=== PATIENT | female | born 1955 | race Caucasian/White ===

== ENCOUNTER 2018-08-30 11:30 | Inpatient (IN) ==
[2018-08-30] MEDS ORDERED: NS IV ONE ×3 (11:43)
[2018-08-30] MEDS ORDERED: NS 1,000 ML ONE ×2 (11:49→14:03)
[2018-08-30] MEDS ORDERED: NS 2,000 ML ONE (11:56)
[2018-08-30 12:16] LABS: BASO# 0.02 X1000 (0.0-0.2); BASO% 0.5 % (0.0-0.8); EOS# 0.04 X1000 (0.0-0.7); EOS% 1.1 % (0.0-10.0); HEMATOCRIT 40.6 % (37.0-47.0); HEMOGLOBIN 13.5 g/dL (12.0-16.0); IMM GRAN# 0.27 X1000 (0.0-0.04); IMM GRAN% 7.3 % (0.0-0.5); LYMPH# 0.17 X1000 (1.2-3.4); LYMPH% 4.6 % (20.5-51.1); MCH 29.1 PG (27-31); MCHC 33.3 g/dL (33-37); MCV 87.5 FL (81-99); MONO# 0.08 X1000 (0.11-0.59); MONO% 2.2 % (1.7-9.3); NEUT# 3.12 X1000 (1.4-6.5); NEUT% 84.3 % (42.2-75.2); PLT 169 X1000 (130-400); RBC 4.64 XMIL (4.2-5.4); RDW 13.6 % (11.5-14.5)
[2018-08-30] MEDS ORDERED: TYLENOL PO ONE (12:26)
[2018-08-30] MEDS ORDERED: TYLENOL PR ONE (12:26)
[2018-08-30 12:29] LABS: INR 1.35; PROTIME 17.4 Seconds (11.0-16.0)
[2018-08-30 12:32] LABS: ALBUMIN 2.6 g/dL (3.5-5.0); CALCIUM 8.1 mg/dL (8.8-10.2); CREATININE 1.3 mg/dL (0.5-0.9); POTASSIUM 2.8 mmol/L (3.5-5.1); TOTAL BILIRUBIN 0.9 mg/dL (0.20-1.00); TOTAL PROTEIN 5.9 g/dL (6.3-8.3)
[2018-08-30 13:04] LABS: BILIRUBIN URINE NEGATIVE (NEGATIVE); BLOOD URINE 3+ (NEGATIVE); CLARITY SL. CLOUDY (CLEAR); COLOR YELLOW; GLUCOSE URINE NEGATIVE (NEGATIVE); KETONE URINE NEGATIVE (NEGATIVE); LEUKOCYTES URINE 2+ (NEGATIVE); NITRITE URINE POSITIVE (NEGATIVE); PROTEIN URINE TRACE mg/dL (NEGATIVE); SP GRAVITY URINE 1.005; UROBILINOGEN URINE NORMAL
[2018-08-30 13:11] LABS: URINE BACTERIA 3+ /HFP
[2018-08-30 13:12] LABS: URINE SOURCE CATH
--- NOTE | 2018-08-30 13:28 | Diag Imaging Result Doc PS360 ---
EXAM: CHEST-PORTABLE HISTORY: fever TECHNIQUE: Chest single view COMPARISON: 04/20/2018 FINDINGS: The lungs are well expanded. The heart is not enlarged. The vessels are not distended. There is no consolidation. No effusion identified. IMPRESSION: No definite pneumonia. Electronically signed by Salvador Morley 08/30/2018 1:25 PM
--- NOTE | 2018-08-30 13:34 | Diag Imaging Result Doc PS360 ---
EXAM: CT ABD/PELVIS W/IV CONT ONLY HISTORY: fever post op TECHNIQUE: CT abdomen and pelvis with intravenous contrast COMPARISON: 04/12/2017 FINDINGS: The vasculature in the lower lungs is distended. No consolidation. The gallbladder has been removed. There has been a gastric bypass procedure. The spleen measures 14.1 cm in AP diameter. No focal hepatic abnormality. Normal pancreas and adrenal glands. Normal right kidney. There is a 5 x 6 x 13 mm stone in the upper left ureter just beneath the ureteropelvic junction. There is an additional 5 mm nonobstructing left renal stone. No right-sided hydronephrosis. Normal aorta. The appendix has been removed. No bowel obstruction. No ascites. Nonspecific minimal inflammation in the mid mesentery. The urinary bladder contains a Bee catheter. The uterus has been removed. No pelvic mass. IMPRESSION: 1.Large stone in the upper left ureter. There is also nonobstructing left renal stone. 2.Gastric bypass and cholecystectomy 3.Mild splenomegaly 4.Appendectomy 5.Hysterectomy This exam was performed using automated exposure control, adjustment of mA or kV according to patient size, and/or use of iterative reconstruction technique. Electronically signed by Salvador Morley 08/30/2018 1:31 PM
[2018-08-30] MEDS ORDERED: AZACTAM 2 GM in NS 100 ML IV ONE (13:39)
[2018-08-30] MEDS ORDERED: LEVAQUIN 750 MG/D5W 750 MG/150 ML IVPB IV ONE (13:50)
[2018-08-30] MEDS ORDERED: POTASSIUM CHLORIDE 40 MEQ/SWI 40 MEQ/100 ML IVPB IV ONE (14:09)
[2018-08-30] MEDS: LEVOPHED 8 MG in D5 1/2 NS 250 ML IV SCH ×3 (14:12→16:25)
[2018-08-30] MEDS ORDERED: LEVOPHED 8 MG in D5 1/2 NS 250 ML IV SCH ×2 (14:15→15:00)
--- NOTE | 2018-08-30 14:42 | PROVIDER DOCUMENTATION ---
This chart was entered by Caterina Gamble Scribe, acting as scribe for Mark Shen MD. HPI-General Adult - General Chief Complaint: Weakness Stated Complaint: post op complaint Time Seen by Provider: 08/30/18 11:36 Source: patient Allergies/Adverse Reactions: Patient Allergies Allergy/AdvReac Type Severity Reaction Status Date / Time nitrofurantoin Allergy RASH Verified 08/30/18 11:40 [From Macrobid] nitrofurantoin Allergy RASH Verified 08/30/18 11:40 macrocrystalline * [From Macrobid] Penicillins Allergy ANAPHYLAXIS Verified 08/30/18 11:40 Home Medications: Home Medication List Medication Instructions Recorded Confirmed Last Taken Type Fenofibrate 160 mg PO QHS 08/11/12 01/27/16 01/26/16 21:30 History 160 Insulin Glargine [Lantus] 100 unit SUBQ BID 08/11/12 01/27/16 01/27/16 10:00 History 100 Metformin [Glucophage] 500 mg PO WSUPPER 08/11/12 01/27/16 01/26/16 21:30 History 500 Ciprofloxacin HCl [Cipro] 500 mg PO BID #20 tablet 01/20/16 01/27/16 01/26/16 10:00 Rx 500 Glipizide 10 mg PO BID 01/20/16 01/27/16 01/26/16 21:00 History 10 Insulin Lispro [Humalog] 18 - 24 units SUBQ TID 01/20/16 01/27/16 01/22/16 12:00 History Ondansetron Odt [Zofran 8Mg Odt] 8 mg PO Q8H PRN PRN #10 tablet 01/20/16 01/27/16 01/22/16 Rx 8 Oxycodone/APAP 10 mg/325 mg 1 each PO Q8H PRN PRN #15 tablet 01/20/16 01/27/16 01/27/16 12:00 Rx [Percocet-10] 1 Tamsulosin [Flomax] 0.4 mg PO HS #30 capsule 01/20/16 01/27/16 01/22/16 22:00 Rx Ciprofloxacin HCl [Cipro] 500 mg PO BID #10 tablet 01/27/16 Unknown Rx Oxycodone HCl/Acetaminophen 1 each PO Q6H PRN PRN #25 tablet 01/27/16 Unknown Rx [Percocet 10-325 mg Tablet] - History of Present Illness -Gen Adult Nature of Presenting Problems: 63yof presents to ED cc severe weakness, feeling like she is 'drunk' but has had no alcohol and vomiting bile since this morning. Pt reports she had umbilical hernia surgery and liver biopsy 3 days ago. Pt also reports she had lap band surgery in June and gallbladder surgery prior to that. Pt has hx of DM. Blood pressure is 86/47 upon exam. Location of Pain/Injury: reports: generalized Pain Radiation: reports: no radiation Quality of Pain: reports: aching Severity: reports: moderate Onset/Duration: reports: this morning Timing: reports: still present, constant, changing over time Context/Activities at Onset: reports: none Modifying Factors: improves with: nothing Associated Symptoms: reports: fever/chills, vomiting, weakness. denies: diarrhea, nausea Similar Symptoms Previously?: No Recently seen or treated by another doctor?: Yes (had hernia surgery 3 days ago) Review of Systems - Adult - REVIEW OF SYSTEMS - ADULT Constitutional: reports: see HPI, chills, fever, fatique Eyes: reports: no symptoms reported Ears, Nose, Mouth & Throat: reports: no symptoms reported Cardiovascular: reports: no symptoms reported Respiratory: reports: no symptoms reported Gastrointestinal: reports: see HPI, vomiting. denies: abdominal pain, diarrhea, nausea Genitourinary: reports: no symptoms reported Musculoskeletal: reports: no symptoms reported Integumentary: reports: no symptoms reported Neurological: reports: no symptoms reported Psychiatric: reports: no symptoms reported Endocrine: reports: no symptoms reported Hematologic/Lymphatic: reports: no symptoms reported Allergic/Immunologic: reports: no symptoms reported All Other Systems: Reviewed and Negative Past History - Adult - PAST MEDICAL HISTORY-ADULT Review of Records: reports: Nursing Assessment Review, Medications Reviewed, Social history reviewed & non-contributory. Major Childhood Illnesses: reports: denies history Cardiovascular: reports: denies history Respiratory: reports: denies history Gastrointestinal: reports: denies history Obstetrical/Gynecological: reports: denies history Genitourinary: reports: denies history Musculoskeletal: reports: denies history Neurological: reports: denies history Endocrine/Immune: reports: denies history Other Conditions: reports: denies history - PRIOR SURGERIES/PROCEDURES Surgical/Procedure History: reports: colonoscopy, cholecystectomy, hysterectomy, - PRIOR HOSPITALIZATIONS Prior Hospitalizations: reports: for other non-related - IMMUNIZATION STATUS Childhood Immunizations: See Nurse Assessment Flu Vaccine: See Nurse Assessment - FAMILY HISTORY Family History: reviewed, not pertinent - SOCIAL HISTORY Smoking: denies Physical Exam-General - PHYSICAL EXAM-ADULT Initial Vital Signs Reviewed: Yes - CONSTITUTIONAL General Appearance: appears well, alert, no apparent distress, lethargic (mild). negative: anxious, combative - EYES Eyes: PERRL/EOMI, pink conjunctivae. negative: meningismus, pale conjunctivae, photophobia - HEAD, EARS, NOSE, MOUTH & THROAT HENMT: normocephalic/atraumatic, moist mucous membranes, normal ENT inspection. negative: angioedema, dental decay, hearing deficit - NECK Neck: non-tender, full range of motion, supple, normal inspection. negative: Brudzinski's sign, carotid bruit, C-spine tenderness - RESPIRATORY Respiratory: chest non-tender, lungs clear, normal breath sounds, no pleuratic chest pain, no respiratory distress, no accessory muscle use. negative: scrap wheeler ckles, rales, rhonchi, stridor, wheezing - CARDIOVASCULAR Cardiovascular: normal peripheral pulses, no edema, no gallop, no JVD, no murmur , tachycardia. negative: regular rate, rhythm, bradycardia - GASTROINTESTINAL (ABDOMEN) Abdominal Exam: normal bowel sounds, non tender, soft. negative: distended, guarding, rigid, rebound, tenderness - LYMPHATIC Lymphatic: no adenopathy. negative: enlargement, striations, streaking - MUSCULOSKELETAL Back Exam: normal inspection, no CVA tenderness, no vertebral tenderness. n egative: swelling Extremity: normal range of motion, non-tender, normal gait, normal inspection, no pedal edema, no calf tenderness, normal capillary refill, pelvis stable. negative: deformity, erythema - SKIN Integumentary: normal color, normal turgor, warm. negative: diaphoresis, erythema, jaundice - NEUROLOGIC Neurologic: supervisor felting II-XII nml as tested, grossly normal, no motor/sensory deficits. negative: facial droop, focal weakness - PSYCHIATRIC Psych/Mental Status: normal mood/affect, normal thought content, normal thought process, oriented x 3. negative: disoriented x 3, anxious, disheveled, depr essed affect Progress - PLAN OF CARE/RESULTS Progress/Plan/Lab Results: Vital Signs - 8 hr 08/30/18 11:33 Temperature 99.2 F Pulse Rate 123 H Respiratory Rate 27 H Blood Pressure 86/47 O2 Sat by Pulse Oximetry 88 L Laboratory Results - last 24 hr 08/30/18 11:47 POC Glucose 104 Orders Category Date Time Status CHEST-PORTABLE [RAD] Stat Exams 08/30/18 11:[address] ABD/PELVIS W/IV CONT ONLY [CT] Stat Exams 08/30/18 11:42 Ordered BLOOD CULTURE [BLDCUL] Stat Lab 08/30/18 11:41 Ordered CBC WITH ELECTRONIC DIFF [HEME] Stat Lab 08/30/18 11:41 Uncollected COMPREHENSIVE METABOLIC PANEL [CHEM] Stat Lab 08/30/18 11:41 Uncollected LACTATE, PLASMA [CHEM] Stat Lab 08/30/18 11:44 Uncollected PROTIME WITH INR [COAG] Stat Lab 08/30/18 11:41 Uncollected PTT [COAG] Stat Lab 08/30/18 11:41 Uncollected TROPONIN T Stat Lab 08/30/18 11:[address] W/POSS RFLX CULT [URINALYSIS] Stat Lab 08/30/18 11:41 Uncollected 0.9% Sodium Chloride Inj [Ns] 1,000 ml Med 08/30/18 11:43 Discontinued 0.9% Sodium Chloride Inj [Ns] 1,000 ml 0.9% Sodium Chloride Inj [Ns] 1,000 ml IV Wide Open mls/hr Result Diagrams: 08/30/18 11:47 08/30/18 11:47 - EKG 1 Time of EKG reading by physician:: 11:52 EKG Read and Signed by:: Mark Shen EKG Interpretation (*Must complete 3 of following elements*): Abnormal (possible anterior infarct, age undetermined) Rate: 119 Rhythm: sinus tachycardia [place]: left QRS: normal - XRAY 1 XRAY: Bilateral XRAY Study: Chest Impression: See EMR Report (IMPRESSION: No definite pneumonia. Electronically signed by Salvador Morley 08/30/2018 1:25 PM) - CT/MRI 1 CT Study: Abdomen, Pelvis Impression: See EMR Report (IMPRESSION: 1.Large stone in the upper left ureter. There is also nonobstructing left renal stone. 2.Gastric bypass and cho lecystectomy 3.Mild splenomegaly 4.Appendectomy 5.Hysterectomy) - CONSULTS/PCP/HOSPITALIST Notification #1 *Consult/PCP/Hospitalist*: Dr. Reyes/Urologist Time Discussed: 13:45 Consult Disposition: Admit, other (asked me to admit pt to hospitalist and send to [facility]) #2 Consult: Dr. Alex Time Discussed: 13:51 Consult Disposition: Will see in ED Departure - Departure Date of Disposition Decision: 08/30/18 Time of Disposition Decision: 14:02 DIAGNOSIS: Septic shock, Urinary tract infection, Hypokalemia Disposition: ADMITTED INPATIENT 09 Certified Medical Emergency: Emergent Condition: Critical Additional Freetext Instructions: ED Follow Up Instructions: You have been treated by a care provider in the Emergency Department. These instructions are being provided to you so you can have an understanding of how to care for yourself upon discharge. [facility] you are responsible for making arrangements for follow-up care by a physician of your choice. Take all prescribed medications as directed. Return to the Emergency Department immediately for any new or worsening symptoms. You may call the Physician Referral phone number at [phone] to obtain a list of Physicians who are taking new patients. Referrals and Follow-Ups: Gonsalo Hassan MD [Primary Care Provider] - - Critical Care Note This patient required my direct & personal management of CC.: Yes Total Time (mins): 38 Critical Care Statement: This patient required my direct personal management to treat or rule out processes, the absence of which, could potentiallly result in sudden, clinically significant life or limb threatening deterioration. Attestation - Physician/ ROMINA Attestation Patient care was provided by Advanced Practice Provider:: No The physician spent face to face time with patient:: Yes Advanced Practice Provider documentation review:: Supervising physician onsite and consulted in the evaluation and care of this patient. The physician did have a face to face encounter with the patient. This chart was documented by the indicated scribe, (Caterina Gamble Scribe) and accurately reflects the services I performed and decisions made by me, Mark Shen MD, as attested by the provider's signature.
--- NOTE | 2018-08-30 14:56 | EKG Report ---
Test Performed on : 08/30/2018 11:52:34 AM Test Reason : ER Blood Pressure : / mmHG Vent. Rate : 119 BPM Atrial Rate : 119 BPM P-R Int : 116 ms QRS Dur : 084 ms QT Int : 284 ms P-R-T Axes : 011 -43 106 degrees QTc Int : 399 ms Sinus tachycardia. Left axis deviation Possible Anterior infarct , age undetermined Abnormal ECG When compared with ECG of 20-APR-2018 09:48, Nonspecific T wave abnormality now evident in Inferior leads Inverted T waves have replaced nonspecific T wave abnormality in Anterior leads Unconfirmed Result
[2018-08-30] MEDS ORDERED: DIPRIVAN 1% ONE (15:01)
[2018-08-30] MEDS ORDERED: FENTANYL ONE (15:01)
[2018-08-30] MEDS ORDERED: XYLOCAINE-MPF 2% ONE (15:04)
[2018-08-30] MEDS ORDERED: HUMALOG SUBQ SCH (16:00)
[2018-08-30] MEDS: POTASSIUM CHLORIDE 20 MEQ/SWI 20 MEQ/100 ML IVPB IV SCH ×2 (16:49→18:39)
[2018-08-30] MEDS ORDERED: AMIDATE ONE ×2 (17:10→17:45)
[2018-08-30] MEDS ORDERED: DECADRON ONE (17:21)
[2018-08-30] MEDS ORDERED: ZOFRAN ONE (17:21)
[2018-08-30] MEDS ORDERED: ZEMURON ONE (17:43)
[2018-08-30] MEDS ORDERED: QUELICIN (DOSE) ONE (17:43)
--- NOTE | 2018-08-30 17:50 | HISTORY AND PHYSICAL ---
CHIEF COMPLAINT: Weakness, vomiting. HISTORY OF PRESENT ILLNESS: This is a 63-year-old female with a history of diabetes mellitus, prior kidney stones and obstructive sleep apnea. She presents to the emergency room complaining of generalized weakness, abdominal pain and vomiting. Ms. Alonso underwent gastric sleeve surgery in June, and on August 26 she underwent repair of a hernia at the sleeve as well as a liver biopsy, per the patient's and her 's report. They stated that she felt that she was doing relatively well after the surgery, but this morning she felt like she was drunk, although she had had no alcohol. She began to vomit, prompting her presentation to the ER for evaluation. She denied any black or bloody vomitus or stools or any chest pain or palpitations. She does report a subjective fever. PAST MEDICAL HISTORY: Diabetes mellitus, chronic low back pain, prior renal stones. PAST SURGICAL HISTORY: Breast reduction, ESWL, cholecystectomy, gastric sleeve, hernia repair at gastric sleeve with liver biopsy. SOCIAL HISTORY: She is . She denies any tobacco or illicit drug use. She does drink alcohol occasionally, although it has been quite some time since she has had any. ALLERGIES: Nitrofurantoin, which causes a rash, and penicillin, which causes anaphylaxis. HOME MEDICATIONS: A list will be obtained by the nursing staff and once verified, will review and restart as appropriate. REVIEW OF SYSTEMS: Discussed with the patient and her the pertinent positives stated in the HPI. She denied any syncope or dizziness, any chest pain or palpitations, any difficulty swallowing, change in vision or hearing, any diarrhea or constipation, black or bloody vomitus or stools, any shortness of breath, cough, PND, orthopnea, any night sweats, recent weight loss or weight gain, productive cough, any hematuria dysuria, frequency or urgency. PHYSICAL EXAMINATION: GENERAL: This is a 63-year-old female who is lying on the stretcher in the emergency room in mild distress. VITAL SIGNS: Blood pressure is 102/52 with a heart rate of 112. Respirations are 20 to 22. Temperature is 100.8 oral with room air saturation 96% EYES: Pupils are equal and round and react to light. EOMs are intact. Sclerae are anicteric. HEENT: Head is normocephalic, atraumatic. Mucous membranes are moist. NECK: Supple with trachea midline. CARDIOVASCULAR: Regular rate and rhythm. S1 and S2 appreciated. She has no lower extremity edema. Calves are nontender bilaterally to palpation. Peripheral pulses are palpable x4 extremities. PULMONARY: Breath sounds are clear with no increased work of breathing noted. Chest rises and falls symmetrically with respiration. Chest wall is nontender to palpation. GASTROINTESTINAL: Abdomen is soft. She is tender around the umbilical area. Nondistended, with bowel sounds in all 4 quadrants. SKIN: Pale and moist. NEUROLOGIC: She is alert and oriented x3. LABS: WBCs 3.7 with hemoglobin 13.5, hematocrit 40.6 and platelets of 169. INR is 1.35. Sodium 141, potassium 2.8, BUN 20, creatinine 1.3 with a glucose of 111. Alkaline phosphatase is 307 with a troponin of 0.093. Lactate is 4.6. Urinalysis is positive for nitrites. She does have 10 to 20 microscopic red blood cells, 10 to 20 microscopic white blood cells and 3+ bacteria. Urine culture and blood cultures are pending. Chest x-ray reveals no definite pneumonia. There is no consolidation. No effusion. Heart is not enlarged. Lungs are well expanded. Vessels are not distended. CT of the abdomen and pelvis with IV contrast revealed a 5 x 6 x 13 mm stone in the left upper ureter just beneath the UPJ. There is an additional 5 mm nonobstructing left renal stone. No right-sided hydronephrosis. Normal aorta. Gallbladder has been removed. There has been a gastric bypass procedure. Normal pancreas and adrenal glands. No focal hepatic abnormality. The appendix has been removed. No bowel obstruction. No ascites. Nonspecific minimal inflammation in the mid mesentery. Urinary bladder contains a Bee catheter. The uterus has been removed. No pelvic mass. EKG reveals sinus tachycardia. ASSESSMENT AND PLAN: 1. Septic shock. Source is very likely her urine. She did receive 3 L of saline bolus in the emergency room, and Levophed was started. We will continue per protocol. 2. Urinary tract infection. She was given aztreonam and Levaquin in the emergency room. We will continue aztreonam, and further antibiotics will be culture driven. 3. Obstructing 5 x 6 x 13 mm left upper ureter ureteropelvic junction stone. Urology has been consulted, and we appreciate their care with this patient. 4. Hypokalemia. We will replete her potassium and trend her labs and replete as appropriate. 5. Acute kidney injury. We will renal-dose medications and trend her creatinine. Of note, she did receive IV hydration. 6. History of diabetes mellitus. She will be placed on pattern blood glucose with sliding scale insulin. 7. Elevated troponin, very likely secondary to sepsis. We will trend her troponins and cardiac profiles. 8. For deep venous thrombosis prophylaxis, will use sequential compression devices. She will remain n.p.o. She will be transferred to the [facility] ICU, where she will be evaluated by Urology. Further treatments pending hospital course. Dictated by NORMAN Simms for Gregg Acevedo MD cc: NORMAN Simms MD MTDD
[2018-08-30] MEDS ORDERED: VERSED ONE (17:52)
[2018-08-30 18:27] LABS: ALLEN TEST YES; BE -8.3 mmoll (-3.0-3.0); BLOOD TYPE ARTERIAL; HCO3-(ACT) 18.4 mmoll (20.0-26.0); METHB 1.5 % (0.0-1.5); O2HB 95.8 % (95.0-99.0); PCO2(98.6) 49 mmHg (35-45); PO2(98.6) 106 mmHg (60-100); SAMPLE BLOOD; SAO2 99.5 % (95.0-100.0); SRATE 10 BPM; THB 12.5 g/dL (11.5-17.4); TVOL 500 mL; pH(98.6) 7.21 (7.35-7.45)
[2018-08-30 18:28] LABS: MODALITY VENTILATOR
--- NOTE | 2018-08-30 18:43 | CONSULTATION ---
DATE OF CONSULTATION: 08/30/2018 CHIEF COMPLAINT: Altered mental status and confusion, with left ureteral stone. HISTORY OF PRESENT ILLNESS: Ms. Alonso is a 63-year-old with a history of diabetes, hypertension, nephrolithiasis, and morbid obesity who has been feeling fatigued and nauseated ever since she had abdominal hernia surgery and a liver biopsy 3 days ago at [facility]. She states that she has been having low grade temperatures around 100 F. She has been having decreased energy and becoming more altered per patient and her . She has not been able to carry on normal conversations. The patient presented to the emergency room today with altered mental status, fatigue and weakness. A CT scan was performed which showed a large left ureteral stone causing moderate obstruction with no evidence of perinephric stranding. The patient had elevated creatinine at 1.3 from a baseline around 0.7, as well as a leukopenia with a white blood cell count of 3.7. The patient has been tachycardic up to 125 bpm and was febrile to 100.8F. The patient's blood pressures have been in the 80s and have responded to fluids. The patient was transferred to [facility] for further evaluation and surgical treatment. Patient has been seen by Dr. Hernandez for stones, most recently 4 years ago per her report when he did ESWL. Denies any flank pain. She has had decreased PO intake with associated nausea and vomiting. PAST MEDICAL HISTORY: 1. Diabetes. 2. Hypertension. 3. Kidney stones. 4. Morbid obesity. PAST SURGICAL HISTORY: 1. Cholecystectomy. 2. Lap band surgery. 3. Umbilical hernia surgery. 4. Liver biopsy. 5. Extracorporeal shockwave lithotripsy. 6. Breast Reduction ALLERGIES: 1. Macrobid. 2. Penicillins. MEDICATIONS: Home medications have not verified in the computer by nursing and patient. FAMILY HISTORY: Kidney stones. SOCIAL HISTORY: Occasional alcohol, denies tobacco, or illicit drug use. PHYSICAL EXAM: Vital Signs: Temperature 97.6, heart rate 117, blood pressure 131/58, oxygen saturation 100% on 3 L nasal cannula. General: Mild distress. Alert and oriented to person, place, and time. Slightly diaphoretic. HEENT: Normocephalic, atraumatic. Pupils equal, round, and reactive to light. Mucosa membranes moist. Respiratory: Good respiratory effort without audible wheezing or rales. Cardiovascular: Evidence of tachycardia and hypotensive ,1+ lower extremity edema. Abdomen: Soft, nontender, nondistended. No palpable masses or hepatosplenomegaly. Evidence of central adiposity. Multiple abdominal incisions are visualized with Steristrips present. : No suprapubic tenderness. No CVA tenderness. Neurologic: Moving all extremities. Gross motor and sensory intact. Skin: No skin lesions or rashes. Slightly diaphoretic. LABORATORY DATA: White blood cell count 3.7, hemoglobin 13.5, hematocrit 40.6, platelets 169. Sodium 141, potassium 2.8, chloride 103, bicarb 21, BUN 20, creatinine 1.3 glucose 111, lactate 4.6. UA shows 3+ bacteria, nitrite positive, 3+ blood and 10 to 20 white blood cells. IMAGING: Reviewed with CT abdomen and pelvis which showed an obstructing left ureteral stone measuring approximately 5 x 13 mm in size, leading to proximal hydronephrosis, stones present at the left ureteropelvic junction. Smaller stone was present in the left kidney. No other stones were seen on the right side. ASSESSMENT AND PLAN: Ms. Alonso is a 63-year-old with diabetes, hypertension, hypercholesterolemia, nephrolithiasis, and morbid obesity, who presents in consultation regarding an left obstructing ureteral stone. The patient is septic with evidence of systemic inflammatory response syndrome criteria. The patient has leukopenia, hypertension and tachycardia. The patient is currently requiring fluid resuscitation and has been started on Levophed. In talking with the patient and her , I recommended cystoscopy and left ureteral stent placement. Risks, benefits, alternatives of the surgical procedure were discussed the patient, and the patient elected to proceed. We will plan to do this emergently. Discussed with them that she may worsen after the stent is placed and have difficulty with coming of the ventilator. We will plan to place a catheter after the procedure for optimal drainage. We will continue to monitor renal function after the stent is in place. Continue Aztreonam and Levofloxacin. Likely would benefit from addition of Vancomycin. Will need continued ICU care. cc: Delfino Reyes MD [facility]ENTERWyatt
[2018-08-30] MEDS ORDERED: OFIRMEV 1000 MG/ISOTONIC SOLN 1,000 MG/100 ML BOTTLE IV PRN (19:12)
[2018-08-30] MEDS ORDERED: VANCOMYCIN IV PER PHARMACY MISC SCH (19:30)
--- NOTE | 2018-08-30 19:59 | PROGRESS NOTE ---
DATE: 08/30/2018 SUBJECTIVE: Patient's chart was reviewed. Patient presented to [facility] earlier today with generalized weakness, abdominal pain, and vomiting. Upon arrival, patient was noted to be hypotensive with an elevated heart rate. Temperature was noted to be 100.8. A full evaluation was pursued. White blood cell count was noted to be slightly low at 3.70. Urinalysis returned grossly abnormal. Additionally, patient was found to have a slightly elevated creatinine of 1.3 and a slightly elevated troponin with normal CK of 0.116. CT scan of the abdomen and pelvis was performed. Patient was found to have a 5 x 6 x 13 mm stone in the upper left ureter just beneath the ureteropelvic junction. Patient was treated with IV bolus, IV antibiotics, and transfer to [facility] with urology consultation was made. Upon arrival to the emergency department, patient was alert and oriented. She was maintained on Levophed therapy. Patient was taken for surgical intervention. Patient tolerated this reasonably well. Upon return to the ICU, patient was maintained on ventilatory support. Patient continues to require Levophed to maintain adequate blood pressures. Otherwise, patient's temperature was noted to be 102. Otherwise, patient is sedated and comfortable. OBJECTIVE: Vital Signs: Temperature 102 degrees heart rate 120, respirations 14, blood pressure 95/53. General: Critically ill, on ventilatory support. Cardiovascular: Tachycardic, regular rhythm. No significant murmurs, rubs, or gallops. Pulmonary: Clear to auscultation anteriorly. Abdomen: Soft, nontender, nondistended. Decreased bowel sounds. Extremities: No significant clubbing, cyanosis, or edema. Dermatologic: No evidence of rash. LABORATORY DATA: White blood cell count 3.70, hemoglobin 13.5, hematocrit 40.6, platelet count 169,000. PT 17.4, INR is 1.35, PTT is 30.0. pH upon return from surgery was 7.21, pCO2 49, pO2 106, bicarb 18.4. Sodium 141, potassium 2.8, chloride 103, bicarb 21, BUN 20, creatinine 1.3, glucose 111, calcium 8.1, total bilirubin 0.90, total protein 5.9, albumin 2.6, alkaline phosphatase 307, AST 24, ALT 18, CK 100, troponin 0.116. ASSESSMENT AND PLAN: 1. Sepsis, secondary to obstructing urinary tract infection. Patient has received 3 L normal saline bolus in the emergency department. She is currently being treated with Levophed therapy. We will initiate normal saline at 100 mL an hour. We will adjust antibiotics as described below. We will follow up blood cultures as they have been drawn. We will continue supportive care. 2. Urinary tract infection, secondary to an obstructing stone. We will follow blood culture and urine culture. The patient has been treated with aztreonam and levofloxacin therapy. For now, we will continue each of these as she does have a significant penicillin allergy. As patient has recently required hospitalization, I do feel a dose of vancomycin is most appropriate. This will be scheduled. We will follow this closely as well. 3. Respiratory failure- Postoperatively, patient was unable to extubated. Will continue ventilatory support. Will consult Dr. Alexandre for assistance with weaning. 4. Obstructing 5 x 6 x 13 mm left ureteral stone. Patient is status post surgical intervention by Dr. Reyes. We will remain aware. 5. Hypokalemia. Patient has been replenished. We will repeat levels in the a.m. 6. Acute renal failure. Patient's creatinine is slightly elevated at 1.3. We will follow urine output and serial creatinine evaluations. 7. Elevated troponin with normal CK level. This likely is secondary to her acute illness and renal dysfunction. We will follow serial evaluations. 8. Diabetes. Patient will be covered with sliding scale insulin. 9. Fluid, electrolytes, nutrition. We will monitor electrolytes. Normal saline at 100 mL an hour and n.p.o. 10. Prophylaxis. Patient will be continued on sequential compression devices. cc: Gonsalo Hassan MD [facility]
[2018-08-30] MEDS ORDERED: VANCOMYCIN 1,900 MG in NS 500 ML IV ONE (20:00)
[2018-08-30] MEDS: NS 1,000 ML IV SCH (20:04)
[2018-08-30] MEDS ORDERED: ZANTAC IV SCH (20:15)
[2018-08-30] MEDS: SODIUM BICARBONATE 8.4% 150 MEQ in D5W 1,000 ML IV SCH (20:24)
[2018-08-30] MEDS: HUMALOG SUBQ SCH (20:59)
[2018-08-30] MEDS: ZANTAC 50 MG in NS 50 ML IV SCH (22:11)
[2018-08-30] MEDS: ATIVAN IV PRN (22:11)
[2018-08-30] MEDS: AZACTAM 1 GM in NS 50 ML IV SCH (22:42)
[2018-08-31] MEDS: HUMALOG SUBQ SCH ×7 (00:17→23:09)
--- NOTE | 2018-08-31 01:16 | HISTORY AND PHYSICAL ---
ADDENDUM: Patient seen and examined by myself in the ER. Full note dictated and discussed with nurse practitioner. Patient presented to the ER, subsequently was noted to have a large stone with a smaller nonobstructing stone in the left ureter. She currently appears to be septic, as her white count is elevated, her blood pressure is low, in the 70 systolic range. We are going to start her on Levophed, place her on antibiotics, IV fluids. We have consulted Urology, who will perform stone retrieval. We will admit her to the ICU and follow. Her potassium was written to replace in the ER. cc: Gregg Acevedo MD
[2018-08-31] MEDS: LEVOPHED 8 MG in D5 1/2 NS 250 ML IV SCH ×2 (01:23→11:35)
[2018-08-31] MEDS: ATIVAN IV PRN ×5 (03:00→20:09)
[2018-08-31] MEDS: SODIUM BICARBONATE 8.4% 150 MEQ in D5W 1,000 ML IV SCH ×4 (03:48→19:05)
[2018-08-31] MEDS: ZANTAC 50 MG in NS 50 ML IV SCH ×2 (04:29→13:22)
[2018-08-31] MEDS: AZACTAM 1 GM in NS 50 ML IV SCH (05:38)
--- NOTE | 2018-08-31 06:35 | Diag Imaging Result Doc PS360 ---
CHEST-PORTABLE - 08/31/2018 INDICATION: respiratory failure COMPARISON: 08/30/2018 FINDINGS: There is a new endotracheal tube in good position at T5. Lung volumes remain somewhat low. Slight worsening patchy atelectasis or infiltrate in the right lung base. Heart size is top normal. IMPRESSION: Good endotracheal intubation. Lower lung volumes with worsening atelectasis or infiltrate in the right lung base. Electronically signed by Griffin Hastings 08/31/2018 6:32 AM
--- NOTE | 2018-08-31 07:10 | PROGRESS NOTE ---
DATE: 08/31/2018 SUBJECTIVE: Postop day 1 from cystoscopy with left retrograde pyelogram and left ureteral stent placement. The patient remains on Levophed this morning with blood pressures in the 110s. Heart rate has improved into the 80s and 90s. Patient remains afebrile. Has had good urinary output with over 4 L recorded. Per nursing, they have been able to improve her ventilator settings. The patient remains intubated at this time. OBJECTIVE: Vital Signs: Temperature 98.4 degrees, heart rate 93, blood pressure 118/64, oxygen saturation 97% on the ventilator. General: Sickly, elderly woman on the ventilator. Unable to respond to painful stimuli currently. Respiratory: Good respiratory effort without wheezing. The patient remains on the ventilator. Cardiovascular: There is 1+ lower extremity edema. No evidence of tachycardia. Abdomen: Soft, nontender, nondistended. Multiple surgical incisions are seen. : No suprapubic tenderness. The patient has a urethral catheter in place, draining clear yellow urine. No evidence of any sediment. ASSESSMENT AND PLAN: Ms. Alonso is a 63-year-old with diabetes, hypertension, nephrolithiasis, morbid obesity, who is postoperative day 1 from cystoscopy and left ureteral stent placement due to a septic obstructing stone. The patient was febrile in the operating room up to 102 and tachycardic at 115. This has improved throughout the night. The patient continues to require Levophed for blood pressure support and receiving intravenous fluids. The patient had a good amount of urinary output with over 4.4 L recorded. The patient remains intubated due to difficulty with extubation yesterday, likely from her systemic inflammatory response syndrome response. The patient had a leukopenia as well as hypotension and tachycardia yesterday. The patient clinically appears to be stable. Intensive care unit is trying to wean the Levophed as tolerates. We will continue with intravenous fluids and monitoring urinary output. We will follow up morning labs. The patient had an increased creatinine initially up to 1.3. We will monitor her return to baseline, which is approximately 0.7. We will continue to monitor from a urologic standpoint. Please call with questions or concerns. cc: MD Gonsalo Richardson MD MTDD
[2018-08-31] MEDS: NS 1,000 ML IV SCH ×2 (07:45→17:36)
[2018-08-31 07:51] LABS: ALLEN TEST YES; BE -2.4 mmoll (-3.0-3.0); BLOOD TYPE ARTERIAL; METHB 1.1 % (0.0-1.5); O2(CT) 18.2 mL/dL (15.0-23.0); O2HB 96.3 % (95.0-99.0); PCO2(98.6) 42 mmHg (35-45); PO2(98.6) 91 mmHg (60-100); SAMPLE BLOOD; SAO2 99.4 % (95.0-100.0); SRATE 10 BPM; THB 13.4 g/dL (11.5-17.4); TVOL 500 mL; pH(98.6) 7.35 (7.35-7.45)
[2018-08-31 08:12] LABS: MODALITY VENTILATOR
--- NOTE | 2018-08-31 08:39 | OPERATIVE NOTE ---
PROCEDURE DATE: 08/30/2018 PREOPERATIVE DIAGNOSES: 1. Urosepsis. 2. Left hydronephrosis. 3. Left obstructing ureteral stone. 4. Left renal stone. POSTOPERATIVE DIAGNOSES: 1. Urosepsis. 2. Left hydronephrosis. 3. Left obstructing ureteral stone. 4. Left renal stone. PROCEDURES PERFORMED: 1. Cystoscopy, with left retrograde pyelogram. 2. Left ureteral stent placement. SURGEON: Delfino Reyes MD. INTELLIGENCE APPLICATIONS: None. COMPLICATIONS: None. DRAINS: A 6 x 24 cm left ureteral stent. SPECIMENS REMOVED: Urine culture. BLOOD LOSS: Minimal. INDICATION FOR PROCEDURE: Ms. Alonso is a 63-year-old with history of diabetes, hypertension, hyperlipidemia, morbid obesity and nephrolithiasis who presented to the emergency room at [facility] complaining of increased fatigue, nausea, vomiting, and altered mental status. The patient had a CT scan performed which showed an obstructing left ureteral stone with proximal hydronephrosis as well as the smaller left renal stone. The patient was hypotensive, tachycardic up to 120, with a low white blood cell count of 3.7 and worsening renal function at 1.3 from baseline of 0.7. The patient appeared to be septic and was transferred to [facility] for surgical intervention with ureteral stent placement. Risks, benefits and alternatives to procedure were discussed with the patient and her prior to procedure and they elected to proceed. DESCRIPTION OF PROCEDURE: After informed consent was obtained, the patient was brought to the operating room, placed on operative table in supine position. She had received preoperative antibiotics in the emergency room and underwent LMA placement. The patient was then placed into a dorsal supine position, was prepped and draped in usual sterile fashion. A preoperative time out performed with all parties in agreement, including Anesthesia, Surgical and Nursing staff. Following this, I inserted a 21-Nepalese cystourethroscope into the urethra and the entirety of the bladder was inspected with a 30 and 70 degree lens. Both ureteral orifices visualized, with efflux of clear yellow urine. Margin Clerk fluoroscopy was performed which showed no obvious stones seen in the ureter itself. A retrograde pyelogram was then performed which outlined a normal ureter all the way to several filling defects within the proximal portion of the ureter. These seemed to correlate with location of the prior stone. The kidney also was seen to be moderately hydronephrotic. The wire was then passed through the open-ended catheter up into the collecting system itself. Open-ended catheter was removed and a 6 x 24-Nepalese stent was easily passed up into the collecting system itself. Good curl was seen fluoroscopically within the kidney and endoscopically visualized in the bladder. A large amount of sedimentary urine and purulence drained through and around the stent. This was drained from the bladder and specimens were obtained for analysis. The patient's bladder was left full and a 16-Nepalese silicone catheter was inserted through the urethra and into the bladder. This was inflated with 10 mL sterile water and placed to gravity drainage. Plan was for the patient to be extubated and taken to recovery in stable condition. The patient had difficulty with extubation following the procedure after removal of LMA and ultimately had to be intubated and transferred back to ICU. The patient will continue with ICU care and monitoring due to septic obstructive uropathy. cc: Delfino Reyes MD MTD[facility]
--- NOTE | 2018-08-31 08:58 | Diag Imaging Result Doc PS360 ---
RETROGRADES 2 OR 3 FILMS - 08/30/2018 INDICATION: LT RETROGRADE STENT PLACEMENT TECHNIQUE: Left sided ureterogram. The exam was performed by the patient's urologist. 10 images were performed. COMPARISON: CT from 08/30/2018 FINDINGS: Contrast injection of the left upper ureter demonstrates an obstructing stone. There is also left hydronephrosis. A left nephroureteral stent was placed in good position. IMPRESSION: No complication. Electronically signed by Griffin Hastings 08/31/2018 8:55 AM
[2018-08-31 09:09] LABS: ALB/GLOB RATIO 0.6; ALBUMIN 2.2 g/dL (3.5-5.0); CALCIUM 7.3 mg/dL (8.8-10.2); MAGNESIUM 1.3 mg/dL (1.5-2.7); POTASSIUM 2.9 mmol/L (3.5-5.1); TOTAL BILIRUBIN 0.5 mg/dL (0.20-1.00); TOTAL PROTEIN 5.8 g/dL (6.3-8.3)
[2018-08-31] MEDS: LOVENOX SUBQ SCH (09:21)
[2018-08-31 09:57] LABS: BASO# 0.21 X1000 (0.0-0.2); BASO% 0.4 % (0.0-0.8); EOS# 0.09 X1000 (0.0-0.7); EOS% 0.2 % (0.0-10.0); HEMATOCRIT 37.6 % (37.0-47.0); HEMOGLOBIN 12.5 g/dL (12.0-16.0); IMM GRAN# 3.63 X1000 (0.0-0.04); LYMPH# 1.49 X1000 (1.2-3.4); LYMPH% 2.9 % (20.5-51.1); MCH 29.3 PG (27-31); MCHC 33.2 g/dL (33-37); MCV 88.3 FL (81-99); MONO# 2.43 X1000 (0.11-0.59); MONO% 4.7 % (1.7-9.3); MPV 10.7 FL (7.4-10.4); NEUT# 43.71 X1000 (1.4-6.5); NEUT% 84.8 % (42.2-75.2); PLT 187 X1000 (130-400); RBC 4.26 XMIL (4.2-5.4); RDW 14.2 % (11.5-14.5); WBC 51.56 X1000 (4.8-10.8)
[2018-08-31] MEDS ORDERED: MAGNESIUM SULFATE 2 GM/S.W.I. 2 GM/50 ML IVPB IV ONE (10:33)
[2018-08-31 11:19] LABS: BASO# 0.09 X1000 (0.0-0.2); BASO% 0.2 % (0.0-0.8); EOS# 0.01 X1000 (0.0-0.7); HEMATOCRIT 36.2 % (37.0-47.0); HEMOGLOBIN 12.1 g/dL (12.0-16.0); IMM GRAN# 2.28 X1000 (0.0-0.04); IMM GRAN% 5.7 % (0.0-0.5); LYMPH# 1.52 X1000 (1.2-3.4); LYMPH% 3.8 % (20.5-51.1); MCH 28.9 PG (27-31); MCHC 33.4 g/dL (33-37); MCV 86.6 FL (81-99); MONO# 1.96 X1000 (0.11-0.59); MONO% 4.9 % (1.7-9.3); MPV 10.7 FL (7.4-10.4); NEUT# 34.02 X1000 (1.4-6.5); NEUT% 85.4 % (42.2-75.2); PLT 151 X1000 (130-400); RBC 4.18 XMIL (4.2-5.4); WBC 39.88 X1000 (4.8-10.8)
[2018-08-31] MEDS: POTASSIUM CHLORIDE 20 MEQ/SWI 20 MEQ/100 ML IVPB IV SCH ×2 (11:24→13:22)
[2018-08-31 11:41] LABS: BANDS 34 % (0-1); LYMPHS 2 % (21-51); MONO 1 % (1-9); SEGS 63 % (42-75)
[2018-08-31] MEDS: MAXIPIME 2 GM in NS 100 ML IV SCH ×2 (13:00→20:09)
[2018-08-31] MEDS ORDERED: AZACTAM 2 GM in NS 100 ML IV SCH (14:00)
[2018-08-31] MEDS ORDERED: LEVAQUIN 500 MG in NS 100 ML IV SCH (16:00)
--- NOTE | 2018-08-31 16:03 | INFECTIOUS DISEASE CONSULT REP ---
DATE: 08/31/2018 CONCLUSION: The patient has a gram-negative rony bacteremia which I think originates from a urinary tract infection caused by an obstructing left ureteral stone and subsequent hydronephrosis.The patient has had a stent placed by Dr. Reyes. The patient on chest x-ray shows that she may have a right lower lobe infiltrate which would be suggestive of pneumonia. RECOMMENDATIONS: I have switched the patient to cefepime 2 g IV every 8 hours. I have requested that the patient's nurse watch the patient during the first dose. The patient has a severe penicillin allergy manifested by anaphylaxis. The patient has a severe reaction to penicillin, namely anaphylaxis. I asked the his had ever had Keflex, and the patient ,even though she is intubated, shook her head. When I asked her, "Have you ever had Keflex," and she shook her head yes. Therefore, I think it should be safe for the patient to get cefepime, even though she has a serious penicillin allergy. I have also requested that the nurse watch the patient during the first dose. DISCUSSION: The patient recently had had gastric sleeve surgery and repair of a hernia. She developed fever, weakness, and vomiting. DIAGNOSTIC STUDIES: She was found on CAT scan of the abdomen and pelvis to have a left ureteral stone causing hydronephrosis. The chest x-ray shows right lower lobe infiltrate and/or atelectasis. The patient's laboratory studies show a CBC with a white count of 39,880, hemoglobin 12.1, and platelet count 151,000. Creatinine is 1.0, GFR is 56, alkaline phosphatase is 269. Blood gases show a pH of 7.35, a PO2 of 91, a pCO2 of 42. The patient's urinalysis showed white cells and bacteria. Blood cultures are growing a gram-negative rony. There are 2 urine cultures; one so far is not growing anything, and the other urine culture is pending. PAST MEDICAL HISTORY/REVIEW OF SYSTEMS: I was unable to obtain this from the patient, but I did ask her , and he told me she had been in very good health. Her vision and hearing was okay. She was not having any trouble breathing. She did not complain of chest pain. She was not having any nausea, vomiting, or diarrhea prior to her present illness. She was not having any seizures, and she had been lost any motor or sensory function. OBSTETRICAL/GYNECOLOGICAL HISTORY: She is a 2, para 1, AB1. She has had a hysterectomy. PAST SURGICAL HISTORY: Positive for labor and delivery, a miscarriage, hysterectomy, breast reduction, lithotripsy for renal stone. The patient has also had a cholecystectomy, gastric sleeve procedure, hernia repair, and liver biopsy. PAST MEDICAL HISTORY: Positive for diabetes mellitus, chronic low back pain, and renal calculi. SOCIAL HISTORY: The patient is . She does not smoke cigarettes or abuse drugs. She previously had had some alcohol beverages, but none in quite a while. The patient has a dog as a pet. DRUG ALLERGIES: Include penicillin manifested by anaphylaxis. As mentioned above, the patient tolerated Keflex well. The patient is also allergic to Macrobid, manifested by a rash. HOME MEDICATIONS: Include ciprofloxacin, fenofibrate, glipizide, insulin, metformin, Zofran, oxycodone, and Flomax. PHYSICAL EXAMINATION: Vital Signs: Temperature was 102 degrees, it is 98 now, pulse 83, respirations 15, blood pressure is 125/65. Weight: Patient weighs 211 pounds. General: This is an ill-appearing, middle-aged female. She is intubated. Head, Eyes, Ears, Nose, and Throat: She has an orotracheal tube in place. She was able to answer questions by shaking her head yes or no. She can move her extremities. There is no tremor. Neck: No meningismus. Lungs: Clear to auscultation. Cardiovascular: Heart rate is regular. Abdomen: Soft and nontender. Neurologic: The patient is somewhat sedated. She was able to answer questions by shaking her head yes or no. There was no tremor. Integument: No rash noted. Thank you for the consult. cc: MD Gonsalo Prather MD [facility]
--- NOTE | 2018-08-31 16:20 | PROGRESS NOTE ---
DATE: 08/31/2018 SUBJECTIVE: Patient was admitted yesterday with a large obstructing right ureteral stone with associated sepsis. The patient was taken for stent placement. IV antibiotics, IV fluids, and pressor support or required. Postoperatively, patient was unable to be extubated immediately. Overnight, patient's overall clinical condition demonstrated some improvement. Her heart rate improved to within normal limits. Her Levophed requirements decreased. This morning, patient was resting comfortably on the vent. Throughout the day today, patient continues to demonstrate some clinical improvement. Nursing staff has been unable to titrate off of Levophed today. Blood sugars have increased considerably. She is being treated with sliding scale insulin. Blood cultures and urine cultures are already positive for gram-negative rods. OBJECTIVE: T-max 101.6 degrees, heart rate 76 to 126, respirations 15 to 29, blood pressure 80 to 118/38 to 72.General: Ventilated, sedated. Cardiovascular: Regular rate and rhythm. No significant murmurs, rubs, or gallops. Pulmonary: Clear to auscultation anteriorly. Abdomen: Soft, nontender, nondistended. Positive bowel sounds. Extremities: No significant clubbing, cyanosis, or edema. Dermatologic: Evaluation reveals no evidence of rash. LABORATORY DATA: White blood cell count 39.88, hemoglobin 12.1, hematocrit 36.2, platelet count 151,000. Sodium 142, potassium 2.9, chloride 103, bicarb 18, BUN 20, creatinine 1.0, glucose 328, calcium 7.3, magnesium 1.3, total bilirubin 0.50, total protein 5.8, albumin 2.2, alkaline phosphatase 269, AST 43, ALT 23. ASSESSMENT AND PLAN: 1. Sepsis secondary to obstructing urinary tract infection-as described, hemodynamics have improved, however pressor support continues to be required. Blood cultures and urine cultures were positive for gram-negative rods. Dr. Mansfield has been consulted. Consulted for further antibiotic intervention. We will continue to titrate off Levophed as able. We will continue IV fluids as scheduled. 2. Respiratory failure-I appreciate Dr. Alexandre's assistance. We will continue weaning as tolerated. 3. Obstructing 5 x 6 x 13 mm ureteral stone-patient is status post stent placement by Dr. Reyes. Once the patient's clinical condition improves, we will consider more definitive treatment. 4. Hypokalemia-we will replete again today. 5. Acute renal failure--the patient's creatinine is stable at 1.3. We will continue IV fluids. 6. Elevated troponin with normal CK level-troponin this morning is normal. I suspect that this was reactive secondary to her sepsis. We will consider whether cardiology evaluation is necessary once her clinical condition improves. 7. Hypomagnesemia-we will replete magnesium today. 8. Diabetes-we will increase patient's sliding scale to moderate dosing. We will follow this as well. 9. Disposition-at this point, patient continues to require jail care in a hospital setting. We will plan discharge home once appropriate. cc: Gonsalo Hassan MD
--- NOTE | 2018-08-31 20:31 | PULMONOLOGY CONSULTATION ---
DATE: 08/31/2018 REQUESTING PHYSICIAN: Dr. Gonsalo Hassan. REASON FOR CONSULTATION: Septic shock. HISTORY OF PRESENT ILLNESS: Ms. Alonso is a 63-year-old white female with diabetes mellitus, history of nephrolithiasis, with morbid obesity, who underwent a gastric sleeve surgery in June, complicated by an internal hernia requiring repair. The patient was recovering from this process when she developed lethargy, vomiting, and hypotension. The patient initially had leukopenia followed by marked leukocytosis this morning. Urinalysis was consistent with urinary tract infection. CT scan of the abdomen and pelvis confirmed pyelonephritis. The patient was evaluated by Dr. Delfino Reyes and was taken to the OR for stent placement. She maintains on mechanical ventilation. She continues to require vasopressors. PAST MEDICAL HISTORY: 1. Morbid obesity with a BMI greater than 41. By report, she is losing weight. 2. Status post gastric sleeve surgery with complication as outlined above. 3. Nephrolithiasis. 4. Status post cholecystectomy. 5. Diabetes mellitus. 6. Chronic back pain. 7. History of breast reduction. SOCIAL HISTORY: No alcohol or tobacco use. ALLERGIES: Are notable for Macrodantin and penicillin which causes anaphylaxis. REVIEW OF SYSTEMS: Limited due to current medical status. PHYSICAL EXAMINATION: General: Reveals an obese white female who appears comfortable on mechanical ventilation. She continues to require Levophed for hypotension. Vital Signs: Blood pressure 96/62, respiratory rate 18, oxygen saturation 97%, maximum temperature in the last 24 hours 101.6 degrees. HEENT: Pupils are equal and reactive. Oropharynx is clear but evaluation is limited with endotracheal tube in place. Neck: Supple. Chest: Reveals crackles bilaterally with good air flow in all lung gomez. Cardiac Exam: S1-S2. Abdomen: Obese and soft. Extremities: Slightly cool to the touch. LABORATORY DATA: Two blood cultures are growing gram-negative rods. Urine culture is growing but needs additional culture time. Arterial blood gas reveals a pH of 7.35, pCO2 of 42, PO2 of 91 with a lactate of 2.7. White blood count 39,000, hemoglobin 12.1, platelet count 151,000. Sodium 142, potassium 2.9, chloride 103, bicarbonate 18, anion gap 21, BUN 20, creatinine 1.0, glucose 323. IMPRESSION: A 63-year-old with 1. Acute hypoxemic respiratory failure 2. Pyelonephritis with ureteral stone causing hydronephrosis. 3. Status post ureteral stent placement. 4. Gram-negative bacteremia with septic shock. 5. Morbid obesity. 6. Diabetes mellitus with elevated blood sugars. RECOMMENDATIONS: 1. Continue full ventilatory support pending improvement in septic shock. 2. Continue current hydration status with sodium bicarb replacement therapy. 3. Continue antibiotics under the direction of Dr. Brice Mansfield. 4. Continue gastric acid suppression. 5. Initiate DVT prophylaxis. 6. Anticipate daily weaning trials. cc: MD Gonsalo Coobms MD MTD[facility]yatt
[2018-09-01] MEDS: ZANTAC 50 MG in NS 50 ML IV SCH ×4 (00:12→20:32)
[2018-09-01] MEDS: HUMALOG SUBQ SCH ×6 (00:12→20:33)
[2018-09-01] MEDS: SODIUM BICARBONATE 8.4% 150 MEQ in D5W 1,000 ML IV SCH (02:07)
[2018-09-01] MEDS: ATIVAN IV PRN ×2 (02:38→05:30)
[2018-09-01 04:43] LABS: ALLEN TEST YES; BE 19.9 mmoll (-3.0-3.0); BLOOD TYPE ARTERIAL; HCO3-(ACT) 40.4 mmoll (20.0-26.0); METHB 1.2 % (0.0-1.5); O2(CT) 16.8 mL/dL (15.0-23.0); O2HB 95.6 % (95.0-99.0); PO2(98.6) 76 mmHg (60-100); SAMPLE BLOOD; SAO2 98.4 % (95.0-100.0); SRATE 10 BPM; THB 12.5 g/dL (11.5-17.4); TVOL 500 mL; pH(98.6) 7.54 (7.35-7.45)
[2018-09-01 04:45] LABS: MODALITY VENTILATOR; PCO2(98.6) 53 mmHg (35-45)
[2018-09-01] MEDS: LEVOPHED 8 MG in D5 1/2 NS 250 ML IV SCH (04:52)
[2018-09-01] MEDS: NS 1,000 ML IV SCH (04:55)
[2018-09-01] MEDS: MAXIPIME 2 GM in NS 100 ML IV SCH ×3 (04:55→20:32)
[2018-09-01 06:00] LABS: BASO# 0.03 X1000 (0.0-0.2); BASO% 0.1 % (0.0-0.8); EOS# 0.05 X1000 (0.0-0.7); EOS% 0.2 % (0.0-10.0); HEMOGLOBIN 11.9 g/dL (12.0-16.0); IMM GRAN# 0.33 X1000 (0.0-0.04); IMM GRAN% 1.1 % (0.0-0.5); LYMPH# 2.47 X1000 (1.2-3.4); LYMPH% 8.3 % (20.5-51.1); MCH 28.5 PG (27-31); MCHC 33.1 g/dL (33-37); MCV 86.1 FL (81-99); MONO# 1.98 X1000 (0.11-0.59); MONO% 6.6 % (1.7-9.3); MPV 10.6 FL (7.4-10.4); NEUT# 25.01 X1000 (1.4-6.5); NEUT% 83.7 % (42.2-75.2); PLT 128 X1000 (130-400); RBC 4.18 XMIL (4.2-5.4); RDW 13.7 % (11.5-14.5); WBC 29.87 X1000 (4.8-10.8)
[2018-09-01 06:29] LABS: ESTIMATED GFR > 60
[2018-09-01 06:30] LABS: LYMPHS 9 % (21-51); MONO 6 % (1-9); SEGS 85 % (42-75)
[2018-09-01 06:37] LABS: AGAP 14; ALB/GLOB RATIO 0.4; ALBUMIN 1.8 g/dL (3.5-5.0); ALKALINE PHOSPHATASE 255 U/L (32-104); BUN 11 mg/dL (8-22); CALCIUM 7.5 mg/dL (8.8-10.2); CHLORIDE 98 mmol/L (98-107); COSMO 300; CREATININE 0.7 mg/dL (0.5-0.9); GLUCOSE 217 mg/dL (70-104); GOT 20 U/L (10-30); GPT 15 U/L (10-36); SODIUM 148 mmol/L (136-145); TCO2 36 mmol/L (25-35); TOTAL BILIRUBIN 0.34 mg/dL (0.20-1.00); TOTAL PROTEIN 5.8 g/dL (6.3-8.3)
[2018-09-01 06:39] LABS: POTASSIUM 2.5 mmol/L (3.5-5.1)
--- NOTE | 2018-09-01 07:05 | PROGRESS NOTE ---
DATE: 09/01/2018 SUBJECTIVE: Postop day 2 from cystoscopy and left ureteral stent placement. The patient remains intubated, with good urinary output with nearly 7000 mL recorded yesterday. Her Levophed has been slowly weaned down. She was slightly agitated overnight but responds to commands when prompted. The patient had one bowel movement yesterday. OBJECTIVE: Vital Signs: Temperature 99.1 degrees, heart rate 70, blood pressure 122/64, oxygen saturation 94%. General: Sedated. Slightly arousable with physical stimuli. Respiratory: On the ventilator. No increased work of breathing. Cardiovascular: 1+ lower extremity edema, no evidence of tachycardia. Abdomen: Obese. No palpable masses or CVA tenderness. : Urethral catheter in place, draining clear yellow urine. Labs: White blood cell count 29.9, hemoglobin 11.9, hematocrit 36.0, platelets 128,000. Blood gas, pH of 7.5, pCO2 of 53, bicarb 40.4, O2 of 76, lactate 3. Sodium 148, potassium 2.5, chloride 98, bicarb 36, creatinine 0.7, BUN 11, glucose 217. Alkaline phosphatase 255. Microbiology: No growth so far on urine cultures. Blood culture is growing gram-negative rods. ASSESSMENT AND PLAN: Ms. Alonso is a 63-year-old with diabetes, hypertension, recurrent nephrolithiasis, morbid obesity, who presents postoperative day 2 from cystoscopy and left ureteral stent placement due to a septic obstructing stone. The patient's white blood cell count yesterday was as high as 50. It slowly has improved and is at 29 this morning. The patient remains afebrile and is not tachycardic. The patient's blood pressure continues to require Levophed for support, but this is being weaned down. The patient remains intubated and in critical condition. The patient's renal function has returned to normal at 0.7 from 1.3 on admission. The patient is making good urinary output with approximately 7 L recorded yesterday. I think the patient is having some postobstructive diuresis. The patient's potassium remains low and will need continued replacement. The patient has been followed by infectious disease and pulmonary. We will continue to monitor from a urologic standpoint. Please call with questions or concerns. cc: MD Gonsalo Richardson MD MTDD
--- NOTE | 2018-09-01 07:54 | Diag Imaging Result Doc PS360 ---
EXAM: CHEST-PORTABLE INDICATION: respiratory failure TECHNIQUE: One view COMPARISON: 08/31/2018 FINDINGS: The ET tube is stable. The patient is significantly rotated toward the right. Given differences in positioning, the chest is approximately stable. No new consolidations are identified. IMPRESSION: Stable chest. Electronically signed by Dov Baxter 09/01/2018 7:51 AM
[2018-09-01] MEDS ORDERED: VANCOMYCIN 1,650 MG in NS 250 ML IV SCH (08:00)
[2018-09-01] MEDS: D5 1/2 NS 1,000 ML IV SCH ×2 (09:57→20:09)
[2018-09-01] MEDS: LOVENOX SUBQ SCH (09:58)
[2018-09-01 10:35] LABS: ALLEN TEST NO; BE 22.4 mmoll (-3.0-3.0); BLOOD TYPE ARTERIAL; HCO3-(ACT) 42.3 mmoll (20.0-26.0); METHB 1.4 % (0.0-1.5); O2(CT) 16.6 mL/dL (15.0-23.0); O2HB 94.2 % (95.0-99.0); PO2(98.6) 71 mmHg (60-100); SAMPLE BLOOD; SAO2 96.9 % (95.0-100.0); THB 12.5 g/dL (11.5-17.4); pH(98.6) 7.48 (7.35-7.45)
[2018-09-01 10:38] LABS: MODALITY VENTILATOR; PCO2(98.6) 67 mmHg (35-45)
[2018-09-01] MEDS ORDERED: POTASSIUM CHLORIDE 60 MEQ in NS 500 ML IV ONE (10:54)
--- NOTE | 2018-09-01 13:35 | PROGRESS NOTE ---
DATE: 09/01/2018 SUBJECTIVE: Mrs. Alonso was admitted to [facility] with a large obstructing right ureteral stone with associated sepsis. She is postoperative day #2 from cystoscopy and left ureteral stent placement. Urine cultures are growing out gram-negative rods. Blood pressures were in the 90s systolic during the night. She is still requiring pressor support with norepinephrine. They have been able to wean her down to 7 to 9 mics during the night. Her white count has dropped from 39,000 to 29,000 this morning. She still has a left shift. She is still requiring mechanical ventilation. DATA: Chest x-ray demonstrated no consolidation. The ET tube was in proper place. ABGs demonstrated a pH of 7.54, pCO2 53, pO2 76 and an O2 saturation of 98%. OBJECTIVE: She is afebrile pulse 71, BP 113/66.CV: Regular rate and rhythm. Lungs: Clear. Abdomen: Soft, nontender, with active bowel sounds. ASSESSMENT AND PLAN: 1. Acute respiratory failure. Dr. Alexandre is managing the ventilator. Hopefully the patient will be able to be weaned off the vent soon. 2. Urinary tract infection with sepsis. We will continue broad-spectrum antibiotics including Maxipime 2 g IV q.8 hours pending urine and blood cultures. We will continue fluid resuscitation and hopefully will be able to wean down on pressor support as the infection clears. 3. Hypokalemia I will recheck a magnesium level. Her magnesium level was 1.3. She was given magnesium IV yesterday. If her magnesium level has normalized I will then give her KCl 60 mEq IV over 4 hours. I will recheck a basic metabolic profile in the morning. cc: MD Gonsalo Bowden MD
--- NOTE | 2018-09-01 14:56 | INFECTIOUS DISEASE PROGRESS NO ---
DATE: 09/01/2018 PRESENT ILLNESS: The patient has a gram-negative rony bacteremia originating from a gram-negative rony urinary tract infection which in turn has been caused by an obstructed left ureteral stone with subsequent hydronephrosis. Dr. Reyes has placed a stent to relieve the obstruction. The patient's earlier chest x-ray showed a possible right lower lobe infiltrate. I looked at the latest chest x-ray and I did not see any infiltrate in the right lower lobe, but the radiologist has not yet read it. MEDICATION: The patient is on cefepime. PHYSICAL EXAMINATION: Vital Signs: Temperature is 99 degrees, pulse 84, respirations 24, blood pressure 120/68. General: This is an ill-appearing, elderly female. She actually, however, does look better than she did yesterday. She is a little more alert and she has been extubated also. Head, Eyes, Ears, Nose, and Throat: She can hear my spoken words and can see near objects. She does have some perioral ecchymoses. Neck: No meningismus. Lungs: Clear to auscultation. Cardiovascular: Heart rate is regular. Abdomen: Soft and nontender. Neurologic: The patient is awake. She did move her arms to request. There was no tremor. LAB AND X-RAY: Chest x-ray, as mentioned above, by my reading looks clear but the radiologist has not read it. Blood and urine are growing a gram-negative rony which has not yet been identified. The alkaline phosphatase is down to 255. Creatinine is 0.7. GFR is greater than 60. Blood gases show a pH of 7.48, a PO2 of 71, pCO2 of 67. CBC shows a white count of 29,870, hemoglobin 11.9, and platelet count 128,000. ASSESSMENT AND PLAN: The patient has urinary tract infection and an associated bacteremia due to an obstructed ureter. The obstruction has been relieved by Dr. Reyes placing a stent. My plan is to continue with the current antibiotic, namely cefepime, pending the culture and susceptibility testing of both blood and urine. COMORBIDITIES: The patient is a diabetic and she has a history of having renal calculi. cc: MD Gonsalo Prather MD
--- NOTE | 2018-09-01 20:20 | PULMONOLOGY PROGRESS NOTE ---
DATE: 09/01/2018 SUBJECTIVE: The patient is arousable. She will follow commands. She remains on vasopressor support. PHYSICAL EXAMINATION: Vital Signs: Blood pressure 108/59, heart rate 82, respiratory rate 16, oxygen saturation 94%. HEENT: Pupils are equal and reactive. Oropharynx appears clear with endotracheal tube in place. Neck: Supple. Chest: Chest reveals diminished breath sounds bilaterally. Cardiac: Regular rate. Normal S1, normal S2. Abdomen: Soft, with good bowel sounds. Extremities: Extremities reveal 1+ peripheral edema. LABORATORIES: Chest x-ray is rotated, but does not reveal any dense infiltrates. Two blood culture and two urine cultures both reveal gram-negative rods. White blood count 29,000, hemoglobin 11.9, platelet count 128,000. Sodium 148, potassium 2.5, chloride 98, bicarbonate 36, BUN 11, creatinine 0.7, glucose 217. Arterial blood gas #1: pH 7.54, pCO2 of 53, PO2 of 76, with a lactate of 3.0 on mechanical ventilation. Arterial blood gas #2: On a spontaneous breathing trial initiated by this practitioner reveals a pH of 7.48, pCO2 of 67, pO2 of 71. IMPRESSION: A 63-year-old with: 1. Pyelonephritis with ureteral stone impaction causing hydronephrosis. 2. Gram-negative bacteremia with septic shock. 3. Morbid obesity. 4. Diabetes mellitus. 5. Hypoxemic respiratory failure which is acute and related to her current illness. DISCUSSION: A 63-year-old with problems outlined above. She is tolerating a spontaneous breathing trial. The patient will be extubated this morning. PLAN: 1. Extubation as outlined above. 2. Continue IV fluid replacement. She has good urine output. 3. Continue antibiotics per Dr. Brice Mansfield. 4. Continue gastric acid suppression. 5. Continue DVT prophylaxis. Critical Care Time: 30+ minutes cc: MD Gonsalo Coombs MD MTDD
[2018-09-01] MEDS ORDERED: CALMOSEPTINE OINTMENT TOP PRN (20:40)
[2018-09-02] MEDS: HUMALOG SUBQ SCH ×6 (01:09→21:23)
[2018-09-02] MEDS: MAXIPIME 2 GM in NS 100 ML IV SCH ×3 (04:14→21:19)
[2018-09-02] MEDS: ZANTAC 50 MG in NS 50 ML IV SCH ×3 (04:41→21:22)
[2018-09-02 05:06] LABS: ALLEN TEST YES; BE 20.2 mmoll (-3.0-3.0); BLOOD TYPE ARTERIAL; HCO3-(ACT) 40.6 mmoll (20.0-26.0); METHB 1.3 % (0.0-1.5); O2(CT) 16.2 mL/dL (15.0-23.0); O2HB 94.2 % (95.0-99.0); PO2(98.6) 71 mmHg (60-100); SAMPLE BLOOD; SAO2 97.1 % (95.0-100.0); THB 12.2 g/dL (11.5-17.4); pH(98.6) 7.46 (7.35-7.45)
[2018-09-02 05:07] LABS: BASO# 0.05 X1000 (0.0-0.2); BASO% 0.3 % (0.0-0.8); EOS# 0.24 X1000 (0.0-0.7); EOS% 1.4 % (0.0-10.0); HEMOGLOBIN 11.8 g/dL (12.0-16.0); IMM GRAN# 0.11 X1000 (0.0-0.04); IMM GRAN% 0.7 % (0.0-0.5); LYMPH# 2.72 X1000 (1.2-3.4); LYMPH% 16.2 % (20.5-51.1); MCH 28.4 PG (27-31); MCHC 31.9 g/dL (33-37); MCV 88.9 FL (81-99); MONO% 7.2 % (1.7-9.3); MPV 11.2 FL (7.4-10.4); NEUT# 12.45 X1000 (1.4-6.5); NEUT% 74.2 % (42.2-75.2); PLT 101 X1000 (130-400); RBC 4.16 XMIL (4.2-5.4); RDW 14.1 % (11.5-14.5); WBC 16.77 X1000 (4.8-10.8)
[2018-09-02 05:07] LABS: MODALITY COOL AEROSOL; PCO2(98.6) 67 mmHg (35-45)
[2018-09-02 05:37] LABS: AGAP 9; BUN 7 mg/dL (8-22); CHLORIDE 99 mmol/L (98-107); COSMO 298; CREATININE 0.5 mg/dL (0.5-0.9); ESTIMATED GFR > 60; GLUCOSE 234 mg/dL (70-104); MAGNESIUM 1.2 mg/dL (1.5-2.7); POTASSIUM 2.3 mmol/L (3.5-5.1); SODIUM 147 mmol/L (136-145); TCO2 39 mmol/L (25-35)
[2018-09-02] MEDS ORDERED: POTASSIUM CHLORIDE 60 MEQ in NS 500 ML IV ONE ×2 (06:45→07:43)
[2018-09-02] MEDS ORDERED: MAGNESIUM SULFATE 2 GM/S.W.I. 2 GM/50 ML IVPB IV ONE ×2 (06:45→09:48)
--- NOTE | 2018-09-02 07:09 | Diag Imaging Result Doc PS360 ---
EXAM: CHEST-PORTABLE 09/02/2018 HISTORY: respiratory failure TECHNIQUE: AP portable at 0532 COMMENT: There are ill-defined opacities in the left lower lobe partially obscuring the hemidiaphragm. There is vague opacity over the right base which is worse than on 09/01/2018. The endotracheal tube has been removed. IMPRESSION: Worsened atelectasis versus pneumonia in the lung bases. Electronically signed by Segundo Méndez 09/02/2018 7:06 AM
[2018-09-02] MEDS: D5 1/2 NS 1,000 ML IV SCH ×2 (07:35→18:04)
[2018-09-02] MEDS: LOVENOX SUBQ SCH (08:18)
--- NOTE | 2018-09-02 09:47 | PROGRESS NOTE ---
DATE: 09/02/2018 SUBJECTIVE: Ms. Alonso was admitted to [facility] with acute pyelonephritis secondary to ureteral stone impaction with associated gram negative bacteremia and septic shock. Urine cultures grew out Morganella morganii. One blood culture grew out Morganella morganii. Clinically she is improved. Systolic blood pressures have ranged from 109 to 121 whereas her diastolic blood pressures have ranged from 50 to 70. She is no longer requiring pressor support. Renal function has normalized. Her BUN and creatinine were 7 and 0.5 this morning. She is having good urine output. She was extubated yesterday. She reports that she is breathing more comfortably. She is maintaining O2 saturations of 92% to 94% on BiPAP. Her chest x-ray showed bilateral infiltrates. OBJECTIVE: Vital Signs: She is afebrile. Pulse 90, respiratory rate 32, blood pressure 109/50. Cardiovascular: Regular rate and rhythm. Lungs: Diminished breath sounds in the bases. Abdomen: Soft, nontender, with active bowel sounds. Back: No CVA tenderness. Extremities: Trace ankle edema. LABORATORY STUDIES: Various laboratory studies were performed. A CBC demonstrated a white count of 16.7, hemoglobin 11.8, hematocrit 37 and a platelet count of 101,000. Chemistries demonstrate the following: Sodium 147, potassium 2.3, bicarb 39, BUN 7, creatinine 0.5. Her magnesium was 1.2. ASSESSMENT AND PLAN: 1. Acute pyelonephritis with gram-negative septic shock. Clinically, she continues to improve. Renal function has normalized. She has good urine output. Blood pressure is stable off pressors. We will continue broad-spectrum antibiotics. 2. Hypomagnesemia. She was given magnesium sulfate 2 g IV or earlier this morning. A repeat magnesium was 1.4. I will give her an additional 2 g of magnesium IV. 3. Hypokalemia. Her potassium was 2.3. After I have repleted her magnesium, I will give her KCl 60 mEq IV over 4 hours and recheck a potassium level at 4 o'clock this afternoon. cc: MD Gonsalo Bowden MD
[2018-09-02] MEDS ORDERED: MAXIPIME 2 GM in NS 100 ML IV SCH (12:00)
[2018-09-02] MEDS: MYCOSTATIN SUSP PO SCH ×3 (12:08→21:23)
--- NOTE | 2018-09-02 14:13 | INFECTIOUS DISEASE PROGRESS NO ---
DATE: 09/02/2018 PRESENT ILLNESS: Patient has a Proteus bacteremia originating from most likely a Proteus urinary tract infection which in turn was caused by an obstructed left ureteral stone with subsequent hydronephrosis. Dr. Reyes has placed a stent to relieve the obstruction. The patient's earlier chest x-ray showed possible pneumonia and on one today the patient has bilateral infiltrates that are worsening. MEDICATIONS: The patient is receiving cefepime. PHYSICAL EXAMINATION: Vital Signs: Temperature is 99 degrees, pulse is 90, respirations 32, blood pressure is 109/50. General: This is an ill-appearing, obese, elderly female. She is in no acute distress. The patient has been extubated. Head eyes ears, nose and throat: She can hear my spoken words and see near objects. She does have some white coating on her tongue and she tells me her tongue is sore. Neck: She does not have any pain in her neck when she moves her neck or her head. Lungs: Clear to auscultation. Cardiovascular: Heart rate is regular. Abdomen: Soft and nontender. Neurologic: The patient is somewhat lethargic today. She did move her arms and legs to request. She does not have a tremor. LAB AND X-RAY: Chest x-ray shows worsening of the bibasilar pneumonia/atelectasis. Urine is growing a gram-negative rony. Blood culture is growing Morganella. CBC shows a white count of 16,770, hemoglobin 11.8, platelet count 101,000. The patient is on cefepime. This is day 2 of treatment with it. ASSESSMENT AND PLAN: As regarding the patient's bacteremia and urinary tract infection, I plan to continue with cefepime in its current dose of 2 g IV every 8 hours. The patient has a stent in place so that the blockage to the kidney has been relieved. As regards to patient's possible pneumonia, I am getting a procalcitonin level and I am continuing with cefepime in a high dose and I plan to repeat the patient's chest x-ray in a day or 2 from now. Patient appears to be developing oral candidiasis and I am going to start her on Mycostatin swish and swallow. I am also going to get a procalcitonin level. COMORBIDITIES: The patient is a diabetic and she has a history of having renal calculi. cc: MD Gonsalo Prather MD
[2018-09-02] MEDS ORDERED: LASIX IV ONE (16:00)
--- NOTE | 2018-09-02 16:44 | PROGRESS NOTE ---
DATE: 09/02/2018 SUBJECTIVE: The patient was extubated yesterday, remains on Venti mask. The patient does have slightly increased work of breathing and a hoarse cough this afternoon. The patient continues with good urinary output with 4900 recorded yesterday. The patient denies significant pain. The patient is off Levophed and has stable vital signs. OBJECTIVE: Vital Signs: Temperature 98.6, heart rate 90, blood pressure of 121/56. Saturation is 96% on mask. General: No acute distress. Resting comfortably in bed. Slight increased work of breathing. Respiratory: Good respiratory effort. Coarse breath sounds bilaterally. Abdomen: Soft, nontender, nondistended. No palpable masses. Genitourinary: No suprapubic tenderness. Urethral catheter in place draining clear yellow urine. LABORATORY: White blood cell count 16.8, hemoglobin 11.8, hematocrit 37.0, I platelets 101,000. Sodium 147, potassium 2.3, chloride 99, bicarb 39, BUN 7, creatinine 0.5, glucose 234, magnesium 1.2. ASSESSMENT AND PLAN: Ms. Alonso is a 63-year-old with diabetes, hypertension, recurrent nephrolithiasis, morbid obesity who presents postoperative day 3 from cystoscopy and left ureteral stent placement due to proximal obstructing left ureteral stone. The patient's white count continues to downtrend at 16.8 today. The patient's renal function remains stable at 0.5. The patient has good urinary output with over 4 L recorded yesterday. The patient remains afebrile. The patient's blood cultures growing Morganella morganii with both urine cultures growing gram- negative rods. We will continue with culture specific antibiotics. The patient has been followed by Infectious Disease, is currently on cefepime for her culture. The patient has low magnesium and potassium, has been on replacement for both. We will continue to monitor from a urologic standpoint. Please call with questions or concerns. cc: MD Gonsalo Richardson MD MTDD
--- NOTE | 2018-09-02 16:51 | PULMONOLOGY PROGRESS NOTE ---
DATE: 09/02/2018 SUBJECTIVE: The patient is arousable to alert. Patient's reports she had some difficulty using the BiPAP last evening. OBJECTIVE: Blood pressure 102/54. The patient is now off vasopressors. Heart rate 92, respiratory rate 31, oxygen saturation 92%. Patient's maximum temperature in the last 24 hours 100.1 degrees.HEENT: Pupils are equal and reactive. Oropharynx appears clear. Neck: Supple. Chest: Reveals shallow breath sounds bilaterally. Cardiac: Regular rate. Normal S1, normal S2. Abdomen: Obese and soft. Extremities: Reveal trace edema. LABORATORIES: Sodium 147, potassium 2.3, chloride 99, bicarbonate 39, BUN 7, creatinine 0.5, magnesium 1.2. White blood count 16.8, hemoglobin 11.8, platelet count 101,000. Arterial blood gas reveals a pH 7.46, pCO2 of 67, pO2 of 71 on 50% face mask. IMPRESSION: A 63-year-old with 1. Pyelonephritis. 2. Nephrolithiasis with ureteral stone impaction status post stent placement. 3. Gram-negative bacteremia with septic shock. 4. Morbid obesity. 5. Diabetes mellitus. 6. Hypoxemic respiratory failure. DISCUSSION: 63-year-old with problems outlined above. She continues to improve. She is now off mechanical ventilation. Her vasopressors have been weaned and discontinued. PLAN: 1. Continue D5 half-normal saline replacement. 2. Replace potassium and magnesium. 3. Continue antibiotics per Dr. Brice Mansfield. 4. Continue gastric acid suppression and DVT prophylaxis. 5. Initiate mobilization procedures. Attempt to get patient to sit on the side of the bed today and advance as tolerated. cc: MD Gonsalo Coombs MD
[2018-09-02] MEDS: POTASSIUM CHLORIDE 20 MEQ/SWI 20 MEQ/100 ML IVPB IV SCH ×2 (18:29→21:10)
[2018-09-03] MEDS: HUMALOG SUBQ SCH ×6 (01:33→22:03)
[2018-09-03] MEDS: D5 1/2 NS 1,000 ML IV SCH ×4 (01:34→23:10)
[2018-09-03] MEDS: MAXIPIME 2 GM in NS 100 ML IV SCH ×3 (04:25→20:19)
[2018-09-03] MEDS: ZANTAC 50 MG in NS 50 ML IV SCH ×3 (04:25→20:32)
[2018-09-03 04:27] LABS: ALLEN TEST YES; BE 16.7 mmoll (-3.0-3.0); BLOOD TYPE ARTERIAL; HCO3-(ACT) 37.9 mmoll (20.0-26.0); METHB 1.3 % (0.0-1.5); O2(CT) 16.7 mL/dL (15.0-23.0); O2HB 96.1 % (95.0-99.0); PO2(98.6) 88 mmHg (60-100); SAMPLE BLOOD; SAO2 98.7 % (95.0-100.0); THB 12.3 g/dL (11.5-17.4); pH(98.6) 7.49 (7.35-7.45)
[2018-09-03 04:35] LABS: MODALITY COOL AEROSOL; PCO2(98.6) 56 mmHg (35-45)
[2018-09-03 06:02] LABS: MAGNESIUM 1.7 mg/dL (1.5-2.7); PHOSPHORUS 1.7 mg/dL (2.7-4.5)
--- NOTE | 2018-09-03 07:22 | Diag Imaging Result Doc PS360 ---
EXAM: CHEST-PORTABLE 09/03/2018 HISTORY: respiratory failure TECHNIQUE: AP portable at 0541 COMMENT: There is minimal ill-defined opacity in the lung bases which may be due to pulmonary edema. This was also present on 09/02/2018. There is platelike atelectasis in the right lower lobe. IMPRESSION: Pulmonary edema versus pneumonia particularly in the left lower lobe. Right lower lobe atelectasis. Electronically signed by Segundo Méndez 09/03/2018 7:20 AM
--- NOTE | 2018-09-03 08:39 | PROGRESS NOTE ---
DATE: 09/03/2018 SUBJECTIVE: No acute events overnight. The patient's blood pressures have improved. She is slightly tachycardic in the high 90s and is more awake and alert today and answer questions and appears less short of breath. Has had good urinary output with 6 L recorded. The patient has a total of 4 L negative since being admitted. OBJECTIVE: Vital Signs: Temperature 98.6 degrees, heart rate 92, blood pressure 125/73, respiratory rate 32, oxygen saturation is 96% on Ventimask. General: No acute distress. Alert and oriented x3. Respiratory: Good respiratory effort without obvious increased work of breathing. Abdomen: Abdominal obesity. Nontender to palpation. Prior surgical scars are well healed. : No suprapubic tenderness. No CVA tenderness. Urethral catheter in place draining clear yellow urine. LABS: ABG from this morning shows pH of 7.49, PCO2 of 56, and PO2 of 88, bicarb 37.9, lactate 1.3. ASSESSMENT AND PLAN: Ms. Alonso is a 63-year-old with diabetes, hypertension, recurrent nephrolithiasis, morbid obesity who is postoperative from cystoscopy and left ureteral stent placement for a proximal obstructing ureteral stone on the left. The patient's white blood cell count was downtrending yesterday. Patient remains afebrile with stable vital signs. She is off the Levophed and continues to improve. The patient has had a lot of urinary output with over 5900 mL yesterday. She clinically is improving. She is more awake and alert today. The patient's urine culture however showing gram-negative rods and blood cultures are growing Morganella morganii. Was on cefepime and is being followed by Infectious Disease. From a urologic standpoint, the patient seems to be having good urinary output and is on culture specific antibiotics. We will continue to monitor from a urologic standpoint. Please call with questions or concerns. cc: MD Gonsalo Richardson MD MTDWyatt
[2018-09-03] MEDS: MYCOSTATIN SUSP PO SCH ×4 (08:46→20:32)
[2018-09-03] MEDS: LOVENOX SUBQ SCH (08:46)
[2018-09-03 08:50] LABS: BASO# 0.05 X1000 (0.0-0.2); BASO% 0.5 % (0.0-0.8); EOS# 0.33 X1000 (0.0-0.7); HEMATOCRIT 38.8 % (37.0-47.0); HEMOGLOBIN 12.3 g/dL (12.0-16.0); IMM GRAN# 0.12 X1000 (0.0-0.04); IMM GRAN% 1.1 % (0.0-0.5); LYMPH# 2.43 X1000 (1.2-3.4); LYMPH% 22.1 % (20.5-51.1); MCH 28.3 PG (27-31); MCHC 31.7 g/dL (33-37); MCV 89.4 FL (81-99); NEUT# 6.99 X1000 (1.4-6.5); NEUT% 63.3 % (42.2-75.2); RBC 4.34 XMIL (4.2-5.4); RDW 14.2 % (11.5-14.5)
[2018-09-03 09:04] LABS: AGAP 8; BUN 7 mg/dL (8-22); CHLORIDE 95 mmol/L (98-107); COSMO 281; CREATININE 0.4 mg/dL (0.5-0.9); ESTIMATED GFR > 60; GLUCOSE 225 mg/dL (70-104); POTASSIUM 2.9 mmol/L (3.5-5.1); SODIUM 138 mmol/L (136-145); TCO2 35 mmol/L (25-35)
[2018-09-03 09:11] LABS: EOS 4 % (1-10); LYMPHS 19 % (21-51); MONO 6 % (1-9); SEGS 67 % (42-75)
[2018-09-03 09:12] LABS: WBC 11.02 X1000 (4.8-10.8)
[2018-09-03 09:13] LABS: PLT 103 X1000 (130-400)
[2018-09-03] MEDS: POTASSIUM CHLORIDE 20 MEQ/SWI 20 MEQ/100 ML IVPB IV SCH ×2 (09:13→11:08)
[2018-09-03 09:14] LABS: ANISOCYTOSIS 2+; MICROCYTOSIS 2+
[2018-09-03 09:15] LABS: CALCIUM 6.8 mg/dL (8.8-10.2)
--- NOTE | 2018-09-03 11:08 | PROGRESS NOTE ---
DATE: 09/03/2018 SUBJECTIVE: Ms. Alonso was admitted to [facility] with acute pyelonephritis secondary to ureteral stone impaction with associated gram-negative septic shock. Urine cultures grew out Morganella. Clinically she is greatly improved. She is awake and easily arousable. She is breathing comfortably on supplemental O2. Chest x-rays do show a small amount of fluid in the bases. Renal function continues to improve. Her leukocytosis is down to 11,000. She is no longer requiring pressors to maintain her blood pressure. She is afebrile. Vital signs: Stable. CV: Regular rate and rhythm. Lungs: Decreased breath sounds in the bases. Abdomen: Soft, nontender, with active bowel sounds. ASSESSMENT AND PLAN: 1. Acute pyelonephritis with gram-negative septic shock. Clinically, she is much improved. The septic shock has resolved. Renal function is normal. She has good urine output. Blood pressure is stable off pressors. We will continue broad-spectrum antibiotics. We will advance her to a full liquid diet. If she remains stable today, I am hoping that we can transfer her to the floor tomorrow. 2. Hypokalemia. Her potassium was 3.0 this morning. I will give her KCl 40 mEq over 4 hours and recheck a potassium level in the morning. cc: MD Gonsalo Bowden MD
[2018-09-03] MEDS: NEUTRA-PHOS PO SCH ×2 (15:03→18:30)
--- NOTE | 2018-09-03 15:57 | PULMONOLOGY PROGRESS NOTE ---
DATE: 09/03/2018 SUBJECTIVE: The patient is awake. She reports her appetite is improving. She is without specific complaints except for some tenderness where the potassium chloride is infusing. OBJECTIVE: Vital Signs: Maximum temperature in the last 24 hours 99.9 degrees. Blood pressure 134/82, heart rate 96, respiratory rate 27, oxygen saturation 96% on 5 L per nasal cannula. Intake 3582, output 5950. HEENT: Pupils are equal and reactive. Oropharynx appears clear. Neck: Is supple. Chest: Reveals shallow breath sounds bilaterally with basilar crackles. Cardiac: S1, S2. Abdomen: Is soft and obese. Extremities: Reveal trace edema. LABORATORIES: Chest x-ray reveals mild vascular congestion, atelectasis in the lung bases. White blood count 11.02, hemoglobin 12.3, platelet count 103,000. Arterial blood gas pH 7.49, pCO2 of 56, PO2 of 88. Sodium 138, potassium 2.9, chloride 95, bicarbonate 35, BUN 7, creatinine 0.4, phosphorus is 1.7, magnesium 1.7. IMPRESSION: A 63-year-old with 1. Acute hypoxemic respiratory failure. 2. Nephrolithiasis with ureteral stone impaction status post stent placement. 3. Pyelonephritis. 4. Gram-negative bacteremia related to urinary tract infection. 5. Morbid obesity. 6. Diabetes mellitus. DISCUSSION: A 63-year-old with problems outlined above. The patient is doing well off mechanical ventilation. She is hungry and is anxious to eat. PLAN: 1. Diet as tolerated. 2. Agree with potassium replacement. 3. We will replace the phosphorus with Neutra-Phos. 4. Anticipate transfer to the floor soon. cc: MD Gonsalo Coombs MD
[2018-09-03] MEDS: ZOFRAN IV PRN (23:10)
[2018-09-04] MEDS: HUMALOG SUBQ SCH ×6 (01:13→20:52)
[2018-09-04] MEDS: MAXIPIME 2 GM in NS 100 ML IV SCH ×2 (04:18→12:34)
[2018-09-04 04:36] LABS: BLOOD TYPE ARTERIAL; SAMPLE BLOOD
[2018-09-04 04:37] LABS: ALLEN TEST YES; BE 10.8 mmoll (-3.0-3.0); HCO3-(ACT) 33.3 mmoll (20.0-26.0); MODALITY CANNULA; O2(CT) 17.7 mL/dL (15.0-23.0); O2HB 94.6 % (95.0-99.0); PCO2(98.6) 44 mmHg (35-45); PO2(98.6) 71 mmHg (60-100); SAO2 97.6 % (95.0-100.0); THB 13.3 g/dL (11.5-17.4); pH(98.6) 7.51 (7.35-7.45)
[2018-09-04] MEDS: ZANTAC 50 MG in NS 50 ML IV SCH ×3 (06:17→20:02)
[2018-09-04 06:34] LABS: BASO# 0.04 X1000 (0.0-0.2); BASO% 0.4 % (0.0-0.8); EOS# 0.33 X1000 (0.0-0.7); EOS% 3.3 % (0.0-10.0); HEMATOCRIT 37.2 % (37.0-47.0); IMM GRAN# 0.16 X1000 (0.0-0.04); IMM GRAN% 1.6 % (0.0-0.5); LYMPH# 2.41 X1000 (1.2-3.4); LYMPH% 23.8 % (20.5-51.1); MCH 28.4 PG (27-31); MCHC 32.3 g/dL (33-37); MCV 88.2 FL (81-99); MONO# 1.16 X1000 (0.11-0.59); MONO% 11.5 % (1.7-9.3); MPV 11.3 FL (7.4-10.4); NEUT# 6.03 X1000 (1.4-6.5); NEUT% 59.4 % (42.2-75.2); PLT 136 X1000 (130-400); RBC 4.22 XMIL (4.2-5.4); RDW 13.7 % (11.5-14.5); WBC 10.13 X1000 (4.8-10.8)
[2018-09-04 06:40] LABS: AGAP 2; BUN 6 mg/dL (8-22); CALCIUM 7.1 mg/dL (8.8-10.2); CHLORIDE 99 mmol/L (98-107); COSMO 277; CREATININE 0.4 mg/dL (0.5-0.9); ESTIMATED GFR > 60; GLUCOSE 201 mg/dL (70-104); POTASSIUM 3.2 mmol/L (3.5-5.1); SODIUM 137 mmol/L (136-145); TCO2 36 mmol/L (25-35)
--- NOTE | 2018-09-04 07:52 | Diag Imaging Result Doc PS360 ---
CHEST-PORTABLE - 09/04/2018 INDICATION: respiratory failure COMPARISON: 09/03/2018 FINDINGS: Lung volumes are improved. Stable cardiomegaly. Stable pulmonary vascular congestion. No infiltrates or edema. IMPRESSION: Cardiomegaly and pulmonary vascular congestion. Electronically signed by Griffin Hastings 09/04/2018 7:50 AM
[2018-09-04] MEDS: D5 1/2 NS 1,000 ML IV SCH ×2 (08:00→19:32)
[2018-09-04] MEDS: LOVENOX SUBQ SCH (08:51)
[2018-09-04] MEDS: MYCOSTATIN SUSP PO SCH ×4 (08:51→20:02)
[2018-09-04] MEDS ORDERED: POTASSIUM CHLORIDE 20 MEQ/SWI 20 MEQ/100 ML IVPB IV ONE (10:17)
--- NOTE | 2018-09-04 11:33 | PROGRESS NOTE ---
DATE: 09/04/2018 SUBJECTIVE: Mrs. Alonso is doing well this morning. She is awake and easily arousable. She is oriented to name, place, and time. Blood pressure remains stable off pressors. Urine function has resolved. She is breathing comfortably. She is maintaining O2 saturations of 95% to 96% on 3 L of O2. Her chest x-ray demonstrated improved lung volumes. No infiltrates or edema were noted. OBJECTIVE: Temperature 98.6 degrees, pulse 75, respirations 12, BP 106/61. Cardiovascular: Regular rate and rhythm. Lungs: Clear. Abdomen: Soft, nontender, with active bowel sounds. ASSESSMENT AND PLAN: 1. Acute pyelonephritis with gram-negative shock. The septic shock has resolved. She is neurologically at her baseline. Blood pressure is stable off pressors. Renal function has normalized. She is tolerating full liquids without nausea or vomiting. We will continue broad-spectrum antibiotics for total of 2 weeks. We will increase activity. I believe that we potentially could transfer her to the floor. 2. Hypokalemia. Her potassium was 3.2 this morning. I will give her KCl 20 mEq over 2 hours and recheck a potassium in the morning. cc: MD Gonsalo Bowden MD
[2018-09-04] MEDS ORDERED: KLOR-CON PO ONE (18:05)
[2018-09-04] MEDS ORDERED: LASIX IV ONE (18:07)
--- NOTE | 2018-09-04 18:18 | INFECTIOUS DISEASE PROGRESS NO ---
DATE: 09/04/2018 PRESENT ILLNESS: The patient has a Proteus bacteremia originating from a Proteus urinary tract infection which in turn was caused by having an obstructive left ureteral stone causing hydronephrosis. A stent has been placed to relieve the obstruction. The patient's earlier chest x-ray showed possible pneumonia, but the chest x-ray shows pulmonary venous congestion, but no evidence of infiltrates suggestive of pneumonia. The patient also has oral candidiasis. MEDICATION: The patient is receiving IV cefepime and Mycostatin swish and swallow. PHYSICAL EXAMINATION: Vital Signs: Temperature is 98.5 degrees, pulse 70, respirations 23, blood pressure 121/69. General: This is an ill-appearing obese elderly female. She is in no acute distress. She looks much better today. Head, Eyes, Ears, Nose, and Throat: She can hear my spoken words and see near objects. Most of the white coating on her tongue has cleared. Neck: No meningismus. Lungs: Clear to auscultation. Cardiovascular: Heart rate is regular. Abdomen: Soft and nontender. Neurologic: The patient is alert she can move her extremities. There is no tremor. DIAGNOSTIC STUDIES: CBC shows a white count of 10,130, hemoglobin 12, platelet count 136,000. Blood gases show a pH of 7.51, a PO2 of 71, and a pCO2 of 44. Creatinine is 0.4, GFR is greater than 60. Procalcitonin was 18. Chest x-ray shows pulmonary vascular congestion, but no infiltrate. Repeat blood cultures are pending. ASSESSMENT AND PLAN: 1. The patient has a Proteus bacteremia and urinary tract infection. I have decreased her dose of cefepime to 2 g IV every 12 hours. The patient has a stent in the ureter to prevent further obstruction to the kidney. 2. I plan to continue Mycostatin for the patient's oral candidiasis. The patient had repeat blood cultures drawn yesterday. The results are still pending. The first day of treatment with cefepime will be the first day that the patient's repeat blood cultures are sterile. COMORBIDITIES: 1. The patient is diabetic. 2. She also has renal calculi. cc: MD Gonsalo Prather MD
[2018-09-04] MEDS: NEUTRA-PHOS PO SCH ×2 (18:21→22:42)
--- NOTE | 2018-09-04 18:40 | PULMONOLOGY PROGRESS NOTE ---
DATE: 09/04/2018 SUBJECTIVE: Patient was sleeping upon arrival. She has no increased work of breathing. She is without specific complaints. OBJECTIVE: Vital Signs: The patient has been afebrile for the last 24 hours. Blood pressure 121/69, heart rate 70, respiratory rate 23, oxygen saturation 95% on 3 L per nasal cannula. HEENT: Pupils are equal and reactive. Oropharynx appears clear. Neck: Supple. Chest: Occasional crackles in the lung bases. Cardiac: S1, S2. Abdomen: Obese and soft. Extremities: Trace edema. LABORATORIES: Chest x-ray reveals generous cardiac silhouette and mild vascular congestion. Potassium 3.2, phosphorus 1.5, glucose 185. IMPRESSION: A 63-year-old with: 1. Acute hypoxemic respiratory failure. 2. Morbid obesity. 3. Nephrolithiasis. 4. Pyelonephritis. 5. Diabetes mellitus. 6. Gram negative bacteremia, related to urinary tract infection. PLAN: 1. Diet as tolerated. 2. Replace potassium and phosphorus. 3. Discontinue daily arterial blood gases. 4. Okay for transfer to the floor from a pulmonary standpoint. cc: MD Gonsalo Coombs MD
[2018-09-05] MEDS ORDERED: MAXIPIME 2 GM in NS 100 ML IV SCH ×2
[2018-09-05] MEDS: HUMALOG SUBQ SCH ×6 (00:31→21:14)
[2018-09-05] MEDS: D5 1/2 NS 1,000 ML IV SCH (03:54)
[2018-09-05] MEDS: ZANTAC 50 MG in NS 50 ML IV SCH ×3 (05:12→20:47)
[2018-09-05 06:26] LABS: BASO# 0.04 X1000 (0.0-0.2); BASO% 0.5 % (0.0-0.8); EOS# 0.36 X1000 (0.0-0.7); EOS% 4.3 % (0.0-10.0); HEMATOCRIT 37.7 % (37.0-47.0); HEMOGLOBIN 12.3 g/dL (12.0-16.0); IMM GRAN% 2.4 % (0.0-0.5); LYMPH# 2.68 X1000 (1.2-3.4); LYMPH% 31.9 % (20.5-51.1); MCH 28.4 PG (27-31); MCHC 32.6 g/dL (33-37); MCV 87.1 FL (81-99); MONO# 1.26 X1000 (0.11-0.59); MPV 10.9 FL (7.4-10.4); NEUT# 3.85 X1000 (1.4-6.5); NEUT% 45.9 % (42.2-75.2); PLT 171 X1000 (130-400); RBC 4.33 XMIL (4.2-5.4); RDW 13.9 % (11.5-14.5); WBC 8.39 X1000 (4.8-10.8)
--- NOTE | 2018-09-05 06:45 | Diag Imaging Result Doc PS360 ---
EXAM: CHEST-PORTABLE HISTORY: respiratory failure TECHNIQUE: Portable chest single view COMPARISON: 09/04/2018 FINDINGS: Poor inspiratory effort. The heart is mildly enlarged. The vessels are not distended. There are no infiltrates. No effusion identified. IMPRESSION: Stable chest Electronically signed by Salvador Morley 09/05/2018 6:43 AM
[2018-09-05 07:07] LABS: AGAP 11; ALB/GLOB RATIO 0.5; ALBUMIN 2.2 g/dL (3.5-5.0); ALKALINE PHOSPHATASE 157 U/L (32-104); BUN 7 mg/dL (8-22); CALCIUM 7.7 mg/dL (8.8-10.2); CHLORIDE 101 mmol/L (98-107); COSMO 279; CREATININE 0.4 mg/dL (0.5-0.9); ESTIMATED GFR > 60; GLUCOSE 168 mg/dL (70-104); GOT 14 U/L (10-30); GPT 8 U/L (10-36); MAGNESIUM 1.4 mg/dL (1.5-2.7); PHOSPHORUS 2.2 mg/dL (2.7-4.5); POTASSIUM 3.4 mmol/L (3.5-5.1); SODIUM 139 mmol/L (136-145); TCO2 27 mmol/L (25-35); TOTAL BILIRUBIN 0.57 mg/dL (0.20-1.00)
--- NOTE | 2018-09-05 07:30 | PROGRESS NOTE ---
DATE: 09/05/2018 SUBJECTIVE: No acute events overnight. The patient is breathing better and is currently on nasal cannula. Her vital signs are stable with stable blood pressures. The patient is off of any vasopressors. The patient's urethral catheter is in place, draining clear- yellow urine, with over 4 L recorded yesterday. The patient is tolerating a diet. Denies any nausea or vomiting. The patient has been having regular bowel movements. OBJECTIVE: Vital Signs: Temperature 98 degrees, heart rate 82, blood pressure 122/64, oxygenation 96% on nasal cannula at 3 L. General: No acute distress. Resting comfortably in bed. Alert and oriented x3. Respiratory: Good respiratory effort without audible wheezing or rales. Abdomen: Soft, nontender, nondistended. The patient has an obese abdomen. Difficult to palpate deep into the abdomen. Multiple incisions that are well healed. : No suprapubic tenderness. No CVA tenderness. Urethral catheter in place, draining clear- yellow urine. No evidence of clots. LABORATORY DATA: White blood cell count 8.4, hemoglobin 12.3, hematocrit 37.7, platelets 171,000. Glucose 185. ASSESSMENT AND PLAN: Ms. Alonso is a 63-year-old with diabetes, hypertension, recurrent nephrolithiasis, morbid obesity, who is postoperative day from cystoscopy and left ureteral stent placement for a proximal obstructing ureteral stone on the left. The patient's white blood cell count continues to improve. She remains afebrile with stable vital signs. The patient has had good urinary output with 4.1 liters recorded yesterday. The patient continues to clinically improve. She is more awake and alert today. The patient's urine culture grew Morganella morganii, and has been on antibiotics per Infectious Disease. From a urologic standpoint, she is doing well. Would continue indwelling catheter until the patient is more mobile, at which point the patient's catheter can likely be removed. Please call with questions or concerns. cc: MD Gonsalo Richardson MD [facility]
[2018-09-05] MEDS: LOVENOX SUBQ SCH (08:21)
[2018-09-05] MEDS: MYCOSTATIN SUSP PO SCH ×4 (08:21→20:47)
[2018-09-05] MEDS: LEVAQUIN PO SCH (11:23)
--- NOTE | 2018-09-05 12:38 | PROGRESS NOTE ---
DATE: 09/05/2018 SUBJECTIVE: Mrs. Alonso is doing well this morning. Blood pressure is well controlled. Systolic blood pressures are in the 120s whereas her diastolic blood pressures are in the 60s and 70s. She remains in normal sinus rhythm. Renal function continues to remain within normal limits. She has got good urine output. She is breathing comfortably. She denies any shortness of breath, PND or orthopnea. Chest x-rays were clear. Blood sugars are fluctuating. Sugars are ranging from 165 to 259. OBJECTIVE: She is afebrile, pulse 84, respirations 14, and BP 127/71. CV: Regular rate and rhythm. Lungs: Clear. Abdomen: Soft, nontender,with active bowel sounds. LABORATORY: The CBC demonstrated the following. White count 8.39, hemoglobin 12.3, hematocrit 37.7 and a platelet count of 171,000. Electrolytes demonstrate the following. Sodium 139, potassium 3.4, BUN 7, creatinine 0.4 and glucose 168. ASSESSMENT AND PLAN: 1. Pyelonephritis with gram negative bacteremia and septic shock. The sepsis has resolved. Blood pressure is stable off pressors. Renal function has normalized. She is breathing comfortably on supplemental O2. We will continue full liquid diet. We will increase activity. She is medically stable. We will transfer her to the floor. We will continue broad-spectrum IV antibiotics. 2. Type 2 insulin-dependent diabetes mellitus. Her blood sugars are trending upward. Normally, she is on Lantus 100 units subcutaneously b.i.d. and Humalog 18 to 24 units t.i.d. We will continue pattern sugars and a Humulin R sliding scale. We will most likely add low-dose Lantus 2 units daily. cc: MD Gonsalo Bowden MD
--- NOTE | 2018-09-05 13:52 | INFECTIOUS DISEASE PROGRESS NO ---
DATE: 09/05/2018 PRESENT ILLNESS: The patient has a Proteus bacteremia originating from a Proteus urinary tract infection, which was caused by having an obstruction in the left ureter by a stone. A stent has been placed to relieve the obstruction. The patient also has oral candidiasis. MEDICATIONS: The patient is receiving IV cefepime for the Proteus urinary tract infection and bacteremia and Mycostatin for the oral candidiasis. PHYSICAL EXAMINATION: Vital Signs: Temperature is 98.2 degrees, pulse 89, respirations 13, blood pressure 125/70. General: This is an ill-appearing, obese, elderly female. She looks better today than she did yesterday. She is awake and talkative. Head/eyes/ears/nose/throat: She can hear my spoken words and see near objects. The patient's tongue no longer has any white coating on it. She can hear my spoken words and see near objects. Neck: No meningismus. Lungs: Clear to auscultation. Cardiovascular: Regular heart rate. Abdomen: Soft and nontender. Neurologic: Patient is alert. She can move her extremities. There is no tremor. LAB AND X-RAY: CBC shows a white count of 8390, hemoglobin is 12.3, and platelet count is 171,000. Creatinine is 0.4. GFR is greater than 60. Alkaline phosphatase is 157. ASSESSMENT AND PLAN: The patient has a Proteus bacteremia and urinary tract infection. I have discontinued cefepime and I have placed the patient on Levaquin 500 mg p.o. daily. As regarding the patient's oral candidiasis, I am continuing Mycostatin swish and swallow. COMORBIDITIES: The patient is diabetic and she also has renal calculi. cc: MD Gonsalo Prather MD
--- NOTE | 2018-09-05 20:31 | PULMONOLOGY PROGRESS NOTE ---
DATE: 09/05/2018 SUBJECTIVE: The patient is awake, alert, and conversant. She reports she has been sitting in the bed but has not been out of bed. She is without specific complaints except for generalized weakness. OBJECTIVE: Vital Signs: The patient has been afebrile for the last 24 hours. Blood pressure 123/66, heart rate 81, respiratory rate 12, oxygen saturation 95% on nasal cannula. HEENT: Pupils are equal and reactive. Oropharynx appears clear. Neck: Supple. Chest: Reveals good air entry bilaterally without wheezing or rhonchi. Cardiac exam: S1, S2. Abdomen: Soft without hepatosplenomegaly. Extremities: Without edema. LABORATORIES: White blood count 8.39, hemoglobin 12.3, platelet count 171,000. Sodium 139, potassium 3.4, chloride 101, bicarbonate 27, BUN 7, creatinine 0.4. IMPRESSION: A 63-year-old with: 1. Acute hypoxemic respiratory failure. 2. Nephrolithiasis with pyelonephritis. 3. Gram-negative bacteremia. 4. Diabetes mellitus. 5. Morbid obesity. DISCUSSION: A 63-year-old with problems outlined above. She continues to improve. Oxygen requirements are decreasing. RECOMMENDATIONS: 1. Diet as tolerated to be prescribed per Dr. Villagran. 2. Initiate physical therapy for mobilization. 3. Wean and discontinue oxygen. 4. Anticipate transfer to the floor. cc: MD Gonsalo Coombs MD
[2018-09-06] MEDS: HUMALOG SUBQ SCH ×6 (00:19→22:22)
[2018-09-06] MEDS: ZANTAC 50 MG in NS 50 ML IV SCH ×3 (04:03→22:17)
--- NOTE | 2018-09-06 07:12 | Diag Imaging Result Doc PS360 ---
EXAM: CHEST-PORTABLE 09/06/2018 HISTORY: respiratory failure TECHNIQUE: AP portable at 0517 COMMENT: Compared to the previous study of 09/05/2018 the left basilar opacity which previously partially obscured the hemidiaphragm has improved. Otherwise there has been no significant change. IMPRESSION: Improved atelectasis versus pneumonia left lower lobe. Electronically signed by Segundo Méndez 09/06/2018 7:09 AM
[2018-09-06] MEDS: LEVAQUIN PO SCH (08:09)
[2018-09-06] MEDS: LANTUS INSULIN SUBQ SCH (08:09)
[2018-09-06] MEDS: LOVENOX SUBQ SCH (08:09)
[2018-09-06] MEDS: MYCOSTATIN SUSP PO SCH ×4 (08:29→22:21)
--- NOTE | 2018-09-06 16:16 | INFECTIOUS DISEASE PROGRESS NO ---
DATE: 09/06/2018 PRESENT ILLNESS: Ms. Alonso is being treated for Morganella morganii urinary tract infection with an associated bacteremia. She has also had a left lower lobe pneumonia which is improving. There is also an oral candidiasis. MEDICATIONS: She is receiving Levaquin 500 mg by mouth daily and nystatin swish and swallow 4 times a day. PHYSICAL EXAMINATION: Vital Signs: Temperature is 98.6 degrees, pulse rate 87, respiratory rate 18, blood pressure 128/55, O2 saturation is 95% on room air. General: This is a morbidly obese, chronically ill-appearing female. She is lying in bed, currently in no acute distress. HEENT: Atraumatic, normocephalic. Oral mucous membranes are pink and moist. Conjunctivae are pink. Neck: Supple. Trachea is midline. Cardiovascular: Heart rate and rhythm are regular. Normal sinus rhythm on the monitor. Respiratory: Lung sounds are clear in the upper lobes. Diminished in the mid and bases. Abdomen: Soft, obese, mildly tender, with laparoscopic incisions which are clean and dry, some of which are covered with Steri-Strips. Bowel sounds are active. Neurologic: She is awake, alert, oriented. Able to get up and ambulate with assistance. LABORATORY AND X-RAY: No labs today but her chest x-ray shows improved atelectasis versus pneumonia to the left lower lobe. Previous procalcitonin level was 18 four days ago. Her blood and urine have both grown Morganella morganii. There is another cath urine which has a gram- negative rony on the preliminary report. Blood cultures have been sterile since 09/03/2018. ASSESSMENT AND PLAN: Ms. Alonso has a Morganella morganii urinary tract infection with an associated bacteremia, as well as pneumonia which is improving. She is receiving Levaquin 500 mg by mouth daily which she states is causing her some nausea, particularly since she is only receiving a liquid diet at this time. We will go ahead and change her Levaquin to IV as long she is in the hospital, and once she is able to the eat, we will get her backed to oral route. She is being followed by Dr. Aceves who at some point plans to remove her stone which is nonobstructing in the left kidney. Until that surgery is performed, she will need to continue her Levaquin by mouth at home, and then a few days after her kidney stone is removed since that stone may carry with it some of the same bacteria. She has an oral candidiasis and we will continue her nystatin swish and swallow. These plans have been discussed with and recommended by Dr. Mansfield. COMORBIDITIES: For Ms. Alonso include that she is morbidly obese with diabetes mellitus and left renal calculus. Dictated by NORMAN Pérez for Brice Mansfield MD cc: MD Gonsalo Prather MD [facility]
--- NOTE | 2018-09-06 21:16 | PULMONOLOGY PROGRESS NOTE ---
DATE: 09/06/2018 SUBJECTIVE: The patient is awake, alert, and conversant. She has been transferred out of the ICU. She denies shortness of breath. OBJECTIVE: Blood pressure 125/59, heart rate 83, respiratory rate 16, oxygen saturation 92% on room air. HEENT: Pupils are equal and reactive. Oropharynx is clear. Neck is supple. Chest reveals good air entry bilaterally without wheezing or rhonchi. Cardiac exam: S1, S2. Abdomen is obese and soft. Extremities are without edema. LABORATORY DATA: No new chemistries or CBC today. DIAGNOSTIC DATA: Chest x-ray reveals decreasing opacity at the left base. Lungs are nearly clear. IMPRESSION: A 63-year-old with: 1. Acute hypoxemic respiratory failure. 2. Nephrolithiasis with pyelonephritis, status post stent placement. 3. Diabetes mellitus. 4. Gram-negative bacteremia. 5. Morbid obesity. DISCUSSION: A 63-year-old with problems outlined above. She continues to improve. She currently is on room air. PLAN: 1. Mobilize the patient as tolerated with physical therapy. 2. Wean and discontinue oxygen. 3. No additional recommendations. Please call with questions. cc: MD Gonsalo Coombs MD
--- NOTE | 2018-09-06 21:21 | PROGRESS NOTE ---
DATE: 09/06/2018 SUBJECTIVE: Patient's chart was reviewed. In summary, since my absence, patient has been treated for underlying sepsis with associated bacteremia. This was a consequence of a urinary tract infection and obstructing right ureteral stone. Urine and blood cultures ultimately grew Morganella morganii. Antibiotic intervention has been adjusted per Dr. Mansfield' recommendations. Since my absence, patient's respiratory status has improved. She has been extubated and is adequately ventilating without assistance. Energy level is very low. Oral intake is marginal. She has had some nausea associated with levofloxacin therapy. She denies fevers, chills, shortness of breath, or chest pain. OBJECTIVE: Vital Signs: T-max 99.3 degrees, heart rate 79 to 87, respirations 10 to 18, blood pressure 125 to 132 over 59 to 71. General: No acute distress. Cardiovascular: Regular rate and rhythm. No significant murmurs, rubs, or gallops. Pulmonary: Clear to auscultation bilaterally. Abdomen: Soft, nontender, and nondistended. Positive bowel sounds. Extremities: Moves all extremities well. No significant clubbing, cyanosis, or edema. Dermatologic: No evidence of rash. LABORATORY DATA: None. ASSESSMENT AND PLAN: 1. Sepsis, secondary to obstructed urinary tract infection: As above, blood cultures revealed Morganella morganii. Patient is currently being treated with oral Levaquin. As she has developed significant nausea with oral Levaquin, we will transition patient back to intravenous. Further recommendations will be made per Dr. Mansfield. Patient no longer requires pressor support. 2. Respiratory failure: Patient has been extubated. Pulmonary status remains stable. We will continue to encourage incentive spirometry and aspiration precautions. 3. Obstructing 5 x 6 x 13 mm ureteral stone: Patient is status post stent placement. We will discuss definitive intervention with Dr. Reyes. For now, we will continue supportive care. 4. Acute renal failure: Patient's creatinine has returned to baseline. 5. Elevated troponin with normal CK level: This was diagnosed upon admission. I suspect this was secondary to her underlying sepsis. We will remain aware. 6. Diabetes: Patient's blood sugars are reasonably controlled with sliding scale insulin. 7. Disposition: At this point, patient continues to require halfway care in a hospital setting. We will plan discharge home once appropriate. cc: Gonsalo Hassan MD
[2018-09-07] MEDS: HUMALOG SUBQ SCH ×6 (01:17→21:49)
[2018-09-07] MEDS: ZANTAC 50 MG in NS 50 ML IV SCH (04:41)
[2018-09-07] MEDS ORDERED: PRILOSEC PO ONE (07:30)
[2018-09-07] MEDS: LEVAQUIN 500 MG in NS 100 ML IV SCH (08:18)
[2018-09-07] MEDS: LANTUS INSULIN SUBQ SCH (08:19)
[2018-09-07] MEDS: LOVENOX SUBQ SCH (08:20)
[2018-09-07] MEDS: MYCOSTATIN SUSP PO SCH ×4 (08:20→21:46)
[2018-09-07 08:29] LABS: BASO# 0.02 X1000 (0.0-0.2); BASO% 0.2 % (0.0-0.8); EOS# 0.32 X1000 (0.0-0.7); HEMOGLOBIN 12.1 g/dL (12.0-16.0); IMM GRAN# 0.17 X1000 (0.0-0.04); IMM GRAN% 2.1 % (0.0-0.5); LYMPH% 34.9 % (20.5-51.1); MCH 28.5 PG (27-31); MCHC 32.7 g/dL (33-37); MCV 87.1 FL (81-99); MONO# 1.08 X1000 (0.11-0.59); MONO% 13.5 % (1.7-9.3); MPV 10.9 FL (7.4-10.4); NEUT# 3.63 X1000 (1.4-6.5); NEUT% 45.3 % (42.2-75.2); PLT 307 X1000 (130-400); RBC 4.25 XMIL (4.2-5.4); RDW 13.6 % (11.5-14.5); WBC 8.02 X1000 (4.8-10.8)
[2018-09-07] MEDS: ZOFRAN IV PRN (08:35)
[2018-09-07 08:57] LABS: AGAP 12; ALB/GLOB RATIO 0.5; ALBUMIN 2.5 g/dL (3.5-5.0); ALKALINE PHOSPHATASE 144 U/L (32-104); BUN 6 mg/dL (8-22); CALCIUM 8.2 mg/dL (8.8-10.2); CHLORIDE 104 mmol/L (98-107); COSMO 280; CREATININE 0.4 mg/dL (0.5-0.9); ESTIMATED GFR > 60; GLUCOSE 148 mg/dL (70-104); GOT 20 U/L (10-30); GPT 9 U/L (10-36); POTASSIUM 3.3 mmol/L (3.5-5.1); SODIUM 140 mmol/L (136-145); TCO2 24 mmol/L (25-35); TOTAL BILIRUBIN 0.38 mg/dL (0.20-1.00); TOTAL PROTEIN 7.1 g/dL (6.3-8.3)
[2018-09-07] MEDS: PRILOSEC PO ONE (12:26)
--- NOTE | 2018-09-07 13:05 | INFECTIOUS DISEASE PROGRESS NO ---
DATE: 09/07/2018 SUBJECTIVE: The patient has a Morganella urinary tract infection with an associated bacteremia, and also that organism could be responsible for the patient's left lower lobe pneumonia as well. The patient also has oral candidiasis. MEDICATIONS: The patient is on Levaquin. We switched her to be given IV because she was having problems with her stomach. The patient is on nystatin for her oral candidiasis. PHYSICAL EXAMINATION: Vital Signs: Temperature is 97.9 degrees, pulse 91, respirations 14, blood pressure 104/60. General: This is an obese, chronically ill-appearing, elderly female. She is sitting up in the chair now and ambulated today in the sotelo. Head, eyes, ears, nose, and throat: She can hear my spoken words and see near objects. She does not have any white patches on her tongue. Neck: No meningismus. Lungs: Clear to auscultation. Cardiovascular: Heart rate is regular. Abdomen: Soft. It was not tender. The patient's incisions on her abdomen are intact. Extremities: The patient's legs are edematous, but not erythematous. Neurologic: The patient is alert. As mentioned above, she has been ambulating in the sotelo. LAB AND X-RAY: The CBC today shows a white count of 8020, hemoglobin 12.1, platelet count 307,000. Creatinine 0.4. GFR is greater than 60. Repeat blood cultures were negative on September 03. ASSESSMENT AND PLAN: The patient has Morganella urinary tract infection with an associated bacteremia and possibly pneumonia as well. I would suggest continuing Levaquin for a total of 14 days with day 1 being on September 03 when the patient's blood cultures first turned negative. Therefore, she is on day 4 of treatment with Levaquin, and I would suggest treating her for 10 more days to complete a 2-week treatment course. If a procedure to break up the patient's renal calculi is done after the patient completes her Levaquin for 10 days, then I would suggest to give her Levaquin 1 or 2 days before the procedure, during the procedure, and a day or two after the procedure. Likewise, I would suggest continuing nystatin and stop it 1 or 2 days after the patient finishes taking Levaquin. COMORBIDITIES: She is obese and a diabetic. She also has renal calculi. I am signing off on the patient's case now, but I am available to see her on a p.r.n. basis. As regarding, Levaquin, it is being given intravenously now, but hopefully in a few days it can be given orally so that she can go home on oral Levaquin. Please let me know if you want the patient to go home on IV Levaquin, and I will be happy to set it up. I am available p.r.n. Thank you for the consult. cc: MD Gonsalo Prather MD [facility]
--- NOTE | 2018-09-07 18:15 | PROGRESS NOTE ---
DATE: 09/07/2018 SUBJECTIVE: Upon my arrival this morning, patient states she slept reasonably well. Unfortunately, she was attempting to eat breakfast, although with nausea. Throughout the day, patient states she has achieved improvement in her energy level. She walked with Physical Therapy. This evening, patient is resting in bed. The patient noted eating somewhat improved at lunch, although with marginal success. She denies fevers, chills, vomiting, shortness of breath, or chest discomfort. She does complain of discomfort associated with her Bee catheter. OBJECTIVE: Temperature max 99.1, heart rate 79 to 91, respirations 14 to 20, blood pressure 104 to 115 over 53 to 60.General: Well nourished, well developed, in no acute distress. Cardiovascular: Regular rate and rhythm. No significant murmurs, rubs, or gallops. Pulmonary: Clear to auscultation bilaterally. Abdomen: Soft, nontender, nondistended. Positive bowel sounds. Extremities: Moves all extremities well. No significant clubbing, cyanosis, or edema. Dermatologic: No evidence of rash. LABORATORY DATA: White blood cell count 8.02, hemoglobin 12.1, hematocrit 37.0, platelet count is 307,000. Sodium 140, potassium 3.3, chloride 104, bicarbonate 24, BUN 6, creatinine 0.4, glucose 148, calcium 8.2. Total bilirubin 0.38, total protein 7.1, albumin 2.5, alkaline phosphatase 144, AST 20, ALT 9. ASSESSMENT AND PLAN: 1. Sepsis secondary to obstructed urinary tract infection - Blood and urine cultures returned positive for Morganella morganii. The patient is status post stent placement as described below. For now, we will continue levofloxacin as directed by Dr. Mansfield. Overall, her clinical condition is improving. 2. Respiratory failure - The patient no longer requires mechanical ventilation. We will continue to encourage incentive spirometry and aspiration precautions. 3. Obstructing 5 x 6 x 13 mm ureteral stone - The patient is status post stent placement. I discussed the case with Dr. Reyes. Once patient's condition has stabilized, we will plan lithotripsy and stone extraction. Tentatively, this will be planned for 1 to 2 weeks. 4. Acute renal failure - The patient's creatinine has returned to baseline. 5. Elevated troponin with normal CK level - This likely was secondary to a troponin leak in the setting of sepsis. We will remain aware. 6. Diabetes - We will continue patient on sliding scale insulin. 7. Disposition - At this point, patient continues to require care home care in a hospital setting. We will plan discharge home once appropriate. cc: Gonsalo Hassan MD
--- NOTE | 2018-09-07 18:17 | PROGRESS NOTE ---
DATE: 09/07/2018 SUBJECTIVE: No acute events overnight. The patient overall is doing well. She is ambulatory, working with physical therapy. Denies any pain. She is tired of having a catheter in place and would like it removed. She states she is leaking a small amount around the catheter. She denies any nausea or vomiting. She does state that her breakfast this morning was not palatable; however, dinner seems to be going better. OBJECTIVE: She seems to be more awake, alert and oriented. Temperature 97.9 degrees, heart rate 84, blood pressure 106/58, oxygen saturation 96% on room air. The patient is in no acute distress, resting comfortably in bed. Alert and oriented x3. Respiratory: Good respiratory effort without audible wheezing or rales. Abdomen is soft, nontender, nondistended. No palpable hepatosplenomegaly. : No suprapubic tube pressure. No flank pain. Urethral catheter in place, draining clear yellow urine. No evidence of clots. LABORATORY DATA: White blood cell count 8.0, hemoglobin 12.1, hematocrit 37.0, platelets 307,000. Sodium 140, potassium 3.3, chloride 104, bicarb 24, BUN 6, creatinine 0.4, glucose 148, alkaline phosphatase 144, albumin 2.5. ASSESSMENT AND PLAN: Ms. Alonso is a 63-year-old with diabetes, hypertension, recurrent nephrolithiasis and morbid obesity, who is postoperative from a cystoscopy and left ureteral stent placement for a proximal obstructing ureteral stone in the left ureter. The patient's labs are all within normal limits. Her renal function is back to normal. She is having good urinary output through her urethral catheter. The patient does describe some issues with the catheter and would like it removed. I think it is reasonable to remove it at this time. I talked with her. I recommended continued treatment with antibiotics per cultures by Infectious Disease. From a urologic standpoint, she seems to be improving. I think it is reasonable to schedule her for left extracorporeal shockwave lithotripsy and removal of her left ureteral stent. We tentatively plan to do this next week on 09/15/2018. This was discussed with the patient. We discussed risk of hematoma, inability to pass stone fragments, need for secondary procedures, damage to the kidney, worsening hypertension or diabetes. After thorough discussion, the patient and her elected to proceed. We will tentatively schedule for next week. Please call with questions or concerns. cc: MD Gonsalo Richardson MD MTDD
[2018-09-08] MEDS: HUMALOG SUBQ SCH ×6 (01:09→22:30)
[2018-09-08] MEDS ORDERED: PRILOSEC PO SCH ×2 (07:00→21:00)
[2018-09-08] MEDS: LOVENOX SUBQ SCH (10:15)
[2018-09-08] MEDS: MYCOSTATIN SUSP PO SCH ×4 (10:15→22:30)
[2018-09-08] MEDS: LEVAQUIN 500 MG in NS 100 ML IV SCH (10:15)
[2018-09-08] MEDS: LANTUS INSULIN SUBQ SCH (10:15)
[2018-09-08] MEDS ORDERED: TYLENOL PO PRN (11:04)
[2018-09-08] MEDS ORDERED: REGLAN PO PRN (11:04)
--- NOTE | 2018-09-08 11:28 | PROGRESS NOTE ---
DATE: 09/08/2018 SUBJECTIVE: Overnight, patient states she rested reasonably well. This morning, upon rising, patient complained of nausea. She attempted to eat breakfast, but developed associated vomiting. It is late morning currently. Patient states she feels reasonably well. She is sitting upright in the chair. She has walked with her . Energy level is improving. Yesterday, Bee catheter was removed. She notes significant improvement in the discomfort. She denies fevers, chills, shortness of breath, or chest discomfort. OBJECTIVE: Vital signs: T-max 98.7 degrees, heart rate 75 to 91, respirations 14 to 20, blood pressure 95 to 109 over 46 to 58. General: No acute distress. Cardiovascular: Regular rate and rhythm. No significant murmurs, rubs, or gallops. Pulmonary: Clear to auscultation bilaterally. Abdomen: Soft, nontender, nondistended. Positive bowel sounds. Extremities: Moves all extremities well. No significant clubbing or cyanosis. Trace lower extremity edema bilaterally. Dermatologic: No evidence of rash. LABORATORY DATA: None. ASSESSMENT AND PLAN: 1. Sepsis secondary to obstructed urinary tract infection and associated bacteremia - blood and urine cultures grew Morganella morganii. The patient is status post ureteral stent placement as described below. At present time, symptoms are improving. Levofloxacin is being continued per Dr. Mansfield. We will plan for surgical intervention on the obstructing stone within the next week. Clinically, she is improving. 2. Respiratory failure - the patient no longer requires mechanical ventilation. We will continue to encourage incentive spirometry and aspiration precautions. She denies significant shortness of breath or cough at present time. 3. Obstructing 5 x 6 x 13 mm ureteral stone - as above, patient is status post stent placement by Dr. Reyes. We will plan a lithotripsy within the next week. 4. Acute renal failure - the patient's creatinine is back to baseline. We will continue to encourage hydration. 5. Elevated troponin with a normal CK level - this likely was secondary to troponin leak in the setting of sepsis. The patient denies any cardiac symptoms at present time. 6. Diabetes - blood sugars are borderline. We will continue sliding scale insulin for now. 7. Nausea - this likely is multifactorial. We will continue omeprazole as stress gastritis may be playing a role. We will remain aware that levofloxacin might be contributing. We will add Reglan at night with her omeprazole therapy. We will follow this. 8. Disposition - at this point, patient continues to require half-way care in a hospital setting. We will plan discharge home once appropriate. cc: Gonsalo Hassan MD
[2018-09-08] MEDS ORDERED: REGLAN PO SCH (21:00)
[2018-09-08] MEDS: PRILOSEC PO ONE (23:09)
[2018-09-09] MEDS: ZOFRAN IV PRN (06:53)
[2018-09-09] MEDS: HUMALOG SUBQ SCH ×3 (07:50→16:50)
[2018-09-09] MEDS: LEVAQUIN 500 MG in NS 100 ML IV SCH (09:30)
[2018-09-09] MEDS: LOVENOX SUBQ SCH (09:31)
[2018-09-09] MEDS: MYCOSTATIN SUSP PO SCH ×4 (09:31→16:50)
[2018-09-09] MEDS: LANTUS INSULIN SUBQ SCH (09:32)
[2018-09-09 18:56] LABS: URINE SOURCE CLEAN CATCH
[2018-09-09 19:07] LABS: UR EPITHELIAL CELLS >10 /HPF (<10); URINE BACTERIA NEGATIVE /HPF; URINE RBC TNTC /HPF (<10); URINE WBC TNTC /HPF (<10)
[2018-09-09 19:08] LABS: BILIRUBIN URINE NEGATIVE (NEGATIVE); BLOOD URINE LARGE (NEGATIVE); COLOR ORANGE; GLUCOSE URINE 70 mg/dL (NEGATIVE); KETONE URINE TRACE mg/dL (NEGATIVE); LEUKOCYTES URINE MODERATE (NEGATIVE); NITRITE URINE NEGATIVE (NEGATIVE); PROTEIN URINE 200 mg/dL (NEGATIVE); SP GRAVITY URINE 1.019; TURBIDITY URINE TURBID (CLEAR); UROBILINOGEN URINE NORMAL (NORMAL)
[2018-09-09 19:16] LABS: URINE CASTS NONE SEEN; URINE CRYSTALS CA OXALATE PRESENT; URINE SMALL ROUND CELLS NONE SEEN; URINE YEAST PRESENT
--- NOTE | 2018-09-09 19:49 | DISCHARGE SUMMARY ---
ADMISSION DATE: 08/30/2018 DISCHARGE DATE: ADMISSION DIAGNOSES: 1. Weakness. 2. Vomiting. DISCHARGE DIAGNOSES: 1. Sepsis secondary to obstructed urinary tract infection and associated bacteremia. 2. Respiratory failure, resolved. 3. Obstructing 5 x 6 x 13 mm left ureteral stone. 4. Acute renal failure, resolved. 5. Elevated troponin with normal CK level, resolved. 6. Diabetes, present on arrival. 7. Nausea, controlled. PROCEDURES: 1. CT scan of the abdomen and pelvis was performed on 08/30/2018 which revealed a large stone in the upper left ureter. There is also nonobstructing left renal stone. Gastric bypass and cholecystectomy. Mild splenomegaly. Appendectomy. Hysterectomy. 2. A cystoscopy with left retrograde pyelogram and left ureteral stent placement was performed on 08/30/2018. 3. Multiple chest x-rays were performed while hospitalized. CONSULTATIONS: 1. Dr. Delfino Reyes with Urology was consulted for further evaluation and management of an obstructing ureteral stone. 2. Dr. Brice Mansfield was consulted for further evaluation and management of bacteremia with sepsis. 3. Dr. Alexandre with Pulmonary Medicine was consulted for evaluation and management of respiratory failure. CULTURE DATA: Urine and blood cultures from 08/30/2018 returned with Morganella morganii. HISTORY AND PHYSICAL EXAMINATION: See admit note. PHYSICAL EXAMINATION PRIOR TO DISCHARGE: Temperature 98.5 degrees, heart rate 83, respirations 14, blood pressure is 131/51. General: No acute distress. Cardiovascular: Regular rate and rhythm. No significant murmurs, rubs, or gallops. Pulmonary: Clear to auscultation bilaterally. Abdomen: Soft, nontender, nondistended. Positive bowel sounds. Extremities: Moves all extremities well. No significant clubbing or cyanosis. Trace lower extremity edema bilaterally. Dermatologic: Evaluation reveals no evidence of rash. LABORATORY DATA: Prior to discharge none. HOSPITAL COURSE: Patient was admitted as per history and physical examination. HOSPITAL COURSE: Per condition. 1. Sepsis secondary to obstructed urinary tract infection and associated bacteremia-upon admission, patient was noted to be critically ill. She was immediately taken for urologic intervention secondary to obstructing ureteral stone. By day 2 of hospitalization, patient's white blood cell count had increased dramatically. She had persistent hypotension requiring pressor support. After surgical intervention, patient was unable to be immediately weaned from the ventilator. This took several days, but the patient responded well with time. Ultimately, the patient's blood and urine cultures grew Morganella morganii. The patient was treated with levofloxacin therapy IV while hospitalized. Ten additional days of levofloxacin was recommended at time of discharge. A prescription has been provided. We will follow patient's outpatient course very closely. 2. Respiratory failure- as above, patient was unable to be weaned immediately from the ventilator after surgical intervention. With time, patient did achieve improvement. At time of discharge, patient required no supplemental oxygen. Her breathing was approaching baseline. 3. Obstructing 5 x 6 x 13 mm ureteral stone-the patient is status post stent placement. The stone remains. Lithotripsy will be planned for next . We will continue to follow with Dr. Reyes. 4. Acute renal failure-upon admission, patient's creatinine was noted to be increased. With aggressive hydration, this returned to baseline. At time of discharge, patient had adequate urine output. 5. Elevated troponin with normal CK level-patient has a longstanding history of multiple cardiac evaluations. This elevation was likely secondary to troponin leak in the setting of her sepsis. With time, this also normalized. She denies any current cardiac [*]. 6. Diabetes-patient's blood sugars have been somewhat labile while hospitalized. We will return patient to Toujeo therapy. We will start as a lower dose from her baseline of 35 twice daily. We will start at 10 units twice daily and titrate up as necessary. We will continue sliding scale insulin as an outpatient as well. 7. Nausea-patient has experienced intermittent nausea while hospitalized. She will be discharged home on Reglan as needed and omeprazole therapy. This likely is a consequence of antibiotic intervention as well as urinary stent placement. DISCHARGE CONDITION: Good. DISPOSITION: Discharge to home. MEDICATIONS: 1. Levofloxacin 500 mg daily for 10 days. 2. Nystatin swish and swallow 5 mL 4 times daily for 10 days. 3. Acetaminophen 650 mg every 6 hours as needed. 4. Omeprazole 40 mg at bedtime. 5. Reglan 5 mg with meals and at bedtime as needed. 6. Toujeo 10 units subcu twice daily. 7. Lispro sliding scale. FOLLOWUP: 1. The patient is to follow up with me in approximately 5 to 7 days. 2. Patient is to follow up with Dr. Reyes as arranged. cc: Gonsalo Hassan MD
[2018-09-09 20:07] VITALS: BP 94/48
== END 2018-09-09 19:57 | disposition home or self-care (01) | DRG 853 ==
LOC: SUPCPDRO → P.ED 11:30 → ICU 11:31 → SUATTDRO 11:31 → 3N 09-06 08:50
PROVIDERS: ADMIT Internal Medicine; ATTEND Internal Medicine
CPT/HCPCS: 51702; 71010; 71045; 74177; 74420; 80048; 80053; 81001; 82550; 82805; 82948; 83605; 83735; 84100; 84132; 84145; 84484; 85025; 85610; 85730; 87040; 87077; 87088; 87186; 93005; 94002; 94003; 94761; 94799; 96365; 96367; 96368; 97116; 97162; 97530; 99285; 99291; A9270; J0330; J0692; J1100; J1650; J1815; J1940; J1956; J2060; J2250; J2405; J2780; J3010; J3370; J3475; J3480; J7030; J7040; J7070; Q9967; S0073; XXXXX